=== PATIENT | male | born 1960 | race Caucasian/White ===

== ENCOUNTER 2019-05-15 19:28 | Inpatient (IN) ==
[2019-05-15] MEDS ORDERED: SODIUM CHLORIDE 0.9% 500 ML IV STA (20:07)
[2019-05-15 20:12] LABS: iSTAT Creatinine 1.7 mg/dl (0.6-1.3); iSTAT Hemoglobin 10.5 g/dl (14.0-18.0); iSTAT Ionized Calcium 1.18 mmol/l (1.12-1.32); iSTAT Potassium 4.2 mEq/L (3.3-5.0)
[2019-05-15 20:16] LABS: Basophils # (auto) 0.08 K/uL (0-0.2); Basophils % (auto) 1.2 %; Eosinophils % (auto) 4.6 %; Hematocrit (blood only) 31.5 % (42-52); Hemoglobin 10.8 g/dL (14.0-18.0); Immature Granulocytes # (auto) 0.01 K/uL (0.00-0.02); Immature Granulocytes % (auto) 0.2 %; Lymphocytes # (auto) 1.71 K/uL (1.2-3.4); Lymphocytes % (auto) 26.1 %; Mean Corpuscular Hemoglobin 33.4 pg (25-34); Mean Corpuscular Hgb Conc 34.3 g/dL (32-36); Mean Corpuscular Volume 97.5 fL (80-100); Monocytes # (auto) 0.55 K/uL (0.11-0.59); Monocytes % (auto) 8.4 %; Neutrophils % (auto) 59.5 %; Platelet Count 259 K/uL (130-400); RDW Standard Deviation 45.8 fL (36.4-46.3); Red Blood Count 3.23 M/uL (4.7-6.1); White Blood Count 6.55 K/uL (4.8-10.8)
[2019-05-15 20:21] LABS: Albumin Level 3.5 gm/dl (3.4-5.0); Blood Urea Nitrogen 26 mg/dl (7-18); Calcium 8.5 mg/dl (8.5-10.1); Carbon Dioxide 22 mmol/L (21-32); Chloride 111 mmol/L (98-107); Glucose 115 mg/dl (70-99); Potassium 3.8 mmol/L (3.5-5.1); Sodium 141 mmol/L (136-145)
[2019-05-15 20:23] LABS: Alanine Aminotransferase 16 U/L (12-78); Aspartate Aminotransferase 13 U/L (15-37); BUN Creatinine Ratio 17.5 (10-20); Creatinine Clr Calc Pharmacy 48.2 ml/min; Est GFR (African American) 59.2; Est GFR (Non-African American) 51.1
--- NOTE | 2019-05-15 20:29 | XRay Report ---
XR chest 1V portable HISTORY: syncope COMPARISON: None. FINDINGS: No pneumothorax. No pleural effusions. No focal lung consolidations to suggest pneumonia. N o evidence for pulmonary edema. Old, healed bilateral rib fractures. The heart is borderline enlarged . IMPRESSION: Borderline enlargement of the cardiac silhouette. Otherwise, no acute process within the chest. Electronically signed by: Khalif Scruggs M.D. 05/15/2019 8:28 PM
[2019-05-15] MEDS ORDERED: SODIUM CHLORIDE 0.9% 1000ML 1,000 ML IV ONE (20:32)
[2019-05-15 20:34] LABS: Albumin Globulin Ratio 1.1 (0.9-2); Alkaline Phosphatase 86 U/L (45-117); Bilirubin,Total 0.4 mg/dl (0.2-1); Globulin 3.2 gm/dl (2.5-4.0); Magnesium 2.3 mg/dl (1.8-2.4); Phosphorus 3.9 mg/dl (2.5-4.9); Total Protein 6.7 gm/dl (6.4-8.2); Troponin I < 0.015 ng/ml (0-0.045)
[2019-05-15] MEDS ORDERED: MULTI-VITAMIN INFUSION 10 ML, THIAMINE HCL 100 MG, FOLIC ACID 1 MG in SODIUM CHLORIDE 0... IV SCH (20:45)
[2019-05-15 22:23] LABS: T4 Free Thyroxine 0.77 ng/dl (0.8-1.6)
[2019-05-15] MEDS ORDERED: PANTOprazole 80 MG in DEXTROSE 5% 100 ML IV ONE (23:30)
--- NOTE | 2019-05-15 23:44 | Emergency Department Note ---
Entered by Mica Chin acting as a scribe for Italo Pretty MD History of Present Illness General Chief complaint: Syncope Stated complaint: SYNCOPE, RECTAL BLEEDING Time Seen by Provider: 05/15/19 20:09 Source: patient Limitations: no limitations History of Present Illness Onset (ago): hour(s) (a few) Location: head Pain Consistency: + other (episode) Current Pain Intensity: 0 Quality: + other (syncope) Associated symptoms: + denies other symptoms (incontinence) The patient is a 59 year old male who presents to the Emergency Room with complaints of a syncopal episode that occurred while he was at the [facility] this afternoon. He reports that he was sitting and drinking a beer while this occurred, noting that he had 4 beers today. The patient reports that someone caught him before he hit the ground. He notes that he was feeling normal throughout the day before the syncopal episode. The patient denies any bowel incontinence. 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 The patient denies any pain. He reports that he drinks alcohol every day but does not withdrawal if he doesn't drink alcohol. Denies CP, SOB, n/v. Home Medications Home Medications Medication Instructions Recorded Confirmed Type ibuprofen 200 mg PO Q6H PRN 05/15/19 05/15/19 History sulindac 200 mg PO BID 05/15/19 05/15/19 History Allergies Allergy/AdvReac Type Severity Reaction Status Date / Time codeine AdvReac Unknown Unverified 05/15/19 20:42 Past Med/Surg History Medical History Arthritis Social History Feels Safe at Home: Yes Smoking Status: Never smoker Review of Systems See HPI for pertinent positives & negatives. and A total of 10 systems reviewed and were otherwise negative Physical Exam Vital Signs Vital Signs - 24 hr 05/15/19 19:31 05/15/19 19:34 05/15/19 19:35 Temperature 36.7 C Temperature Source Oral Sepsis Recent Fever Within 48 Hours No Sepsis Action Taken by Nursing No Action Required Pulse Rate 73 72 74 Pulse Rate [Right Finger] Pulse Rate from SpO2 Sensor 72 72 Pulse Rhythm Regular Pulse Strength Normal Respiratory Rate 25 H 17 18 Respiratory Effort / Characteristics Non-Labored Respiratory Depth Normal Respiratory Pattern Regular Blood Pressure 126/78 126/78 Blood Pressure [Right Arm] Blood Pressure Mean 94 94 Blood Pressure Mean [Right Arm] Blood Pressure Position Lying Blood Pressure Position [Right Arm] Pulse Oximetry 99 99 99 Oxygen Delivery Method Room Air 05/15/19 19:40 05/15/19 19:49 05/15/19 19:50 Temperature Temperature Source Sepsis Recent Fever Within 48 Hours Sepsis Action Taken by Nursing Pulse Rate 89 83 87 Pulse Rate [Right Finger] Pulse Rate from SpO2 Sensor 87 Pulse Rhythm Pulse Strength Respiratory Rate 18 20 27 H Respiratory Effort / Characteristics Respiratory Depth Respiratory Pattern Blood Pressure 110/70 Blood Pressure [Right Arm] Blood Pressure Mean 83 Blood Pressure Mean [Right Arm] Blood Pressure Position Blood Pressure Position [Right Arm] Pulse Oximetry 99 Oxygen Delivery Method 05/15/19 20:00 05/15/19 20:15 05/15/19 20:28 Temperature Temperature Source Sepsis Recent Fever Within 48 Hours Sepsis Action Taken by Nursing Pulse Rate 88 84 80 Pulse Rate [Right Finger] Pulse Rate from SpO2 Sensor 88 84 80 Pulse Rhythm Pulse Strength Respiratory Rate 20 23 13 Respiratory Effort / Characteristics Respiratory Depth Respiratory Pattern Blood Pressure 96/71 L 122/73 Blood Pressure [Right Arm] Blood Pressure Mean 79 89 Blood Pressure Mean [Right Arm] Blood Pressure Position Blood Pressure Position [Right Arm] Pulse Oximetry 100 100 100 Oxygen Delivery Method 05/15/19 20:30 05/15/19 20:45 05/15/19 21:00 Temperature Temperature Source Sepsis Recent Fever Within 48 Hours Sepsis Action Taken by Nursing Pulse Rate 77 80 67 Pulse Rate [Right Finger] Pulse Rate from SpO2 Sensor 75 76 67 Pulse Rhythm Pulse Strength Respiratory Rate 19 21 18 Respiratory Effort / Characteristics Respiratory Depth Respiratory Pattern Blood Pressure 116/78 116/70 114/76 Blood Pressure [Right Arm] Blood Pressure Mean 90 85 88 Blood Pressure Mean [Right Arm] Blood Pressure Position Blood Pressure Position [Right Arm] Pulse Oximetry 100 100 100 Oxygen Delivery Method 05/15/19 21:15 05/15/19 21:30 05/15/19 21:40 Temperature Temperature Source Sepsis Recent Fever Within 48 Hours Sepsis Action Taken by Nursing Pulse Rate 70 71 Pulse Rate [Right Finger] 71 Pulse Rate from SpO2 Sensor 70 71 Pulse Rhythm Pulse Strength Respiratory Rate 22 18 15 Respiratory Effort / Characteristics Respiratory Depth Respiratory Pattern Blood Pressure 119/70 126/71 Blood Pressure [Right Arm] 126/71 Blood Pressure Mean 86 89 Blood Pressure Mean [Right Arm] 89 Blood Pressure Position Blood Pressure Position [Right Arm] Lying Pulse Oximetry 100 100 100 Oxygen Delivery Method 05/15/19 21:45 05/15/19 22:00 05/15/19 22:15 Temperature Temperature Source Sepsis Recent Fever Within 48 Hours Sepsis Action Taken by Nursing Pulse Rate 71 82 68 Pulse Rate [Right Finger] Pulse Rate from SpO2 Sensor 70 82 70 Pulse Rhythm Pulse Strength Respiratory Rate 13 15 16 Respiratory Effort / Characteristics Respiratory Depth Respiratory Pattern Blood Pressure 136/72 125/75 125/73 Blood Pressure [Right Arm] Blood Pressure Mean 93 91 90 Blood Pressure Mean [Right Arm] Blood Pressure Position Blood Pressure Position [Right Arm] Pulse Oximetry 100 100 100 Oxygen Delivery Method 05/15/19 22:30 05/15/19 22:45 05/15/19 23:00 Temperature Temperature Source Sepsis Recent Fever Within 48 Hours Sepsis Action Taken by Nursing Pulse Rate 68 69 69 Pulse Rate [Right Finger] Pulse Rate from SpO2 Sensor 70 70 70 Pulse Rhythm Pulse Strength Respiratory Rate 18 19 14 Respiratory Effort / Characteristics Respiratory Depth Respiratory Pattern Blood Pressure 120/74 119/77 119/69 Blood Pressure [Right Arm] Blood Pressure Mean 89 91 85 Blood Pressure Mean [Right Arm] Blood Pressure Position Blood Pressure Position [Right Arm] Pulse Oximetry 100 99 100 Oxygen Delivery Method 05/15/19 23:15 05/15/19 23:39 05/15/19 23:45 Temperature Temperature Source Sepsis Recent Fever Within 48 Hours Sepsis Action Taken by Nursing Pulse Rate 72 73 Pulse Rate [Right Finger] Pulse Rate from SpO2 Sensor 72 71 72 Pulse Rhythm Pulse Strength Respiratory Rate 18 15 Respiratory Effort / Characteristics Respiratory Depth Respiratory Pattern Blood Pressure 139/80 132/71 Blood Pressure [Right Arm] Blood Pressure Mean 99 91 Blood Pressure Mean [Right Arm] Blood Pressure Position Blood Pressure Position [Right Arm] Pulse Oximetry 100 100 98 Oxygen Delivery Method 05/16/19 00:00 05/16/19 00:15 05/16/19 00:30 Temperature Temperature Source Sepsis Recent Fever Within 48 Hours Sepsis Action Taken by Nursing Pulse Rate 74 75 87 Pulse Rate [Right Finger] Pulse Rate from SpO2 Sensor 73 74 88 Pulse Rhythm Pulse Strength Respiratory Rate 12 22 Respiratory Effort / Characteristics Respiratory Depth Respiratory Pattern Blood Pressure 110/69 128/68 158/90 H Blood Pressure [Right Arm] Blood Pressure Mean 82 88 112 Blood Pressure Mean [Right Arm] Blood Pressure Position Blood Pressure Position [Right Arm] Pulse Oximetry 100 99 98 Oxygen Delivery Method 05/16/19 00:45 05/16/19 01:00 05/16/19 01:15 Temperature Temperature Source Sepsis Recent Fever Within 48 Hours Sepsis Action Taken by Nursing Pulse Rate 81 76 82 Pulse Rate [Right Finger] Pulse Rate from SpO2 Sensor 82 78 81 Pulse Rhythm Pulse Strength Respiratory Rate 22 19 25 H Respiratory Effort / Characteristics Respiratory Depth Respiratory Pattern Blood Pressure 143/81 H 145/81 H 146/78 H Blood Pressure [Right Arm] Blood Pressure Mean 101 102 100 Blood Pressure Mean [Right Arm] Blood Pressure Position Blood Pressure Position [Right Arm] Pulse Oximetry 100 100 99 Oxygen Delivery Method 05/16/19 01:30 Temperature Temperature Source Sepsis Recent Fever Within 48 Hours Sepsis Action Taken by Nursing Pulse Rate 91 H Pulse Rate [Right Finger] Pulse Rate from SpO2 Sensor 90 Pulse Rhythm Pulse Strength Respiratory Rate 19 Respiratory Effort / Characteristics Respiratory Depth Respiratory Pattern Blood Pressure 127/80 Blood Pressure [Right Arm] Blood Pressure Mean 95 Blood Pressure Mean [Right Arm] Blood Pressure Position Blood Pressure Position [Right Arm] Pulse Oximetry 98 Oxygen Delivery Method GENERAL: Awake, alert, fatigued-appearing, in no distress HENT: Normocephalic, atraumatic. Oropharynx with dry mucous membranes and otherwise unremarkable. EYES: Normal conjunctiva. Sclera non-icteric. EOMI. No nystamgus. PEARRL. NECK: Supple. No nuchal rigidity. FROM. No JVD. RESPIRATORY: CTAB. CARDIAC: Regular rate, normal rhythm. Extremities warm and well perfused. Pulses equal. ABDOMEN: Soft, non-distended. No tenderness to palpation. No rebound or guarding. No masses. RECTAL: Red blood with dark stool, guaiac positive. MUSCULOSKELETAL: Chest examination reveals no tenderness. The back is symmetrical on inspection without obvious abnormality. There is no CVA tenderness to palpation. No joint edema. LOWER EXTREMITIES: Calves are equal size bilaterally and non-tender. No edema. No discoloration. NEURO: Normal sensorium. No sensory or motor deficits noted. 5/5 strength and SILT x4 extremities. Intact finger to nose. SKIN: No rash or jaundice noted. Course 2028: The patient was evaluated in room B03. A complete history and physical exam was performed. Administered Medications Pantoprazole Sodium 40 mg/ (Dextrose) 100 mls @ 20 mls/hr IV Q5H JANAK Stop: 05/16/19 04:44 Last Admin: 05/16/19 01:54 Dose: 20 mls/hr Documented by: [id number] Discontinued Medications Sodium Chloride (Nss) 500 mls @ 999 mls/hr IV .Q31M STA Stop: 05/15/19 20:37 Last Infusion: 05/15/19 20:36 Dose: 0 mls/hr Documented by: [id number] Admin: 05/15/19 20:10 Dose: 999 mls/hr Documented by: [id number] Multivitamins 10 ml/ Thiamine HCl 100 mg/ Folic Acid 1 mg/Sodium Chloride 1,011.2 mls @ 1,011.2 mls/hr IV .Q1H JANAK Stop: 05/15/19 21:44 Last Infusion: 05/15/19 22:11 Dose: 0 mls/hr Documented by: [id number] Admin: 05/15/19 21:04 Dose: 1,011.2 mls/hr Documented by: [id number] Sodium Chloride (Nss 1000ml) 1,000 mls @ 999 mls/hr IV .Q1H1M ONE Stop: 05/15/19 21:32 Last Infusion: 05/15/19 22:11 Dose: 0 mls/hr Documented by: [id number] Admin: 05/15/19 21:04 Dose: 999 mls/hr Documented by: [id number] Pantoprazole Sodium 80 mg/ (Dextrose) 120 mls @ 480 mls/hr IV ONE ONE Stop: 05/15/19 23:44 Last Infusion: 05/16/19 00:11 Dose: 0 mls/hr Documented by: [id number] Admin: 05/15/19 23:55 Dose: 480 mls/hr Documented by: [id number] Medical Decision Making Differential Diagnosis Etiologies such as vasovagal event, infection, anemia, hypoglycemia, hypovolemia, electrolyte abnormalities, dysrhythmias, cardiac ischemia, cardiac tamponade, valvular heart disease, structural heart disease, seizure, vascular stenosis/dissection, pulmonary embolism, intracerebral event, toxicological process, neurologic event, as well as others were entertained. Medical Records Attestation: I reviewed the patient's medical records. Home Medications Current Medication List: was personally reviewed by me Laboratory Data Attestation: I reviewed the patient's lab results. Result diagrams: 05/15/19 Unknown 05/15/19 Unknown Lab Results 05/15/19 05/15/19 05/15/19 Range/Units 19:36 19:57 20:06 WBC (4.8-10.8) K/uL RBC (4.7-6.1) M/uL Hgb (14.0-18.0) g/dL POC Hgb 10.5 L (14.0-18.0) g/dl Hct (42-52) % POC Hct 31 L (42-52) % MCV (80-100) fL MCH (25-34) pg MCHC (32-36) g/dL RDW Std Deviation (36.4-46.3) fL RDW Coeff of Karan (11.5-14.5) % Plt Count (130-400) K/uL MPV (7.4-10.4) fL Immature Gran % (Auto) % Neut % (Auto) % Lymph % (Auto) % Sanborn % (Auto) % Eos % (Auto) % Baso % (Auto) % Immature Gran # (Auto) (0.00-0.02) K/uL Neut # (Auto) (1.4-6.5) K/uL Lymph # (Auto) (1.2-3.4) K/uL Sanborn # (Auto) (0.11-0.59) K/uL Eos # (Auto) (0-0.5) K/uL Baso # (Auto) (0-0.2) K/uL PT 10.1 (9.0-12.0) Seconds INR 1.0 (0.9-1.1) POC Sodium 139 (135-144) mEq/L Sodium (136-145) mmol/L POC Potassium 4.2 (3.3-5.0) mEq/L Potassium (3.5-5.1) mmol/L POC Chloride 107 (101-112) mEq/L Chloride (98-107) mmol/L Carbon Dioxide (21-32) mmol/L POC Total CO2 20 L (24-31) mEq/l Anion Gap (3-11) POC Anion Gap 18.0 (16-25) mmol/L POC BUN 25 H (7-18) mg/dl BUN (7-18) mg/dl Creatinine (0.6-1.4) mg/dl POC Creatinine 1.7 H (0.6-1.3) mg/dl Est Cr Clr Drug Dosing ml/min Est GFR ( Amer) Est GFR (Non-Af Amer) BUN/Creatinine Ratio (10-20) Glucose (70-99) mg/dl POC Glucose (other) 123 H (70-99) mg/dl Calcium (8.5-10.1) mg/dl POC Ioniz Calcium Marilou 1.18 (1.12-1.32) mmol/l Phosphorus (2.5-4.9) mg/dl Magnesium (1.8-2.4) mg/dl Total Bilirubin (0.2-1) mg/dl AST (15-37) U/L ALT (12-78) U/L Alkaline Phosphatase (45-117) U/L Troponin I (0-0.045) ng/ml Total Protein (6.4-8.2) gm/dl Albumin (3.4-5.0) gm/dl Globulin (2.5-4.0) gm/dl Albumin/Globulin Ratio (0.9-2) TSH (0.300-4.500) uIu/ml Free T4 (0.8-1.6) ng/dl Ethyl Alcohol mg/dL (0-3) mg/dl Blood Type O Positive Antibody Screen NEGATIVE 05/15/19 05/15/19 05/15/19 Range/Units 20:42 Unknown Unknown WBC 6.55 (4.8-10.8) K/uL RBC 3.23 L (4.7-6.1) M/uL Hgb 10.8 L (14.0-18.0) g/dL POC Hgb (14.0-18.0) g/dl Hct 31.5 L (42-52) % POC Hct (42-52) % MCV 97.5 (80-100) fL MCH 33.4 (25-34) pg MCHC 34.3 (32-36) g/dL RDW Std Deviation 45.8 (36.4-46.3) fL RDW Coeff of Karan 13.0 (11.5-14.5) % Plt Count 259 (130-400) K/uL MPV 9.0 (7.4-10.4) fL Immature Gran % (Auto) 0.2 % Neut % (Auto) 59.5 % Lymph % (Auto) 26.1 % Sanborn % (Auto) 8.4 % Eos % (Auto) 4.6 % Baso % (Auto) 1.2 % Immature Gran # (Auto) 0.01 (0.00-0.02) K/uL Neut # (Auto) 3.90 (1.4-6.5) K/uL Lymph # (Auto) 1.71 (1.2-3.4) K/uL Sanborn # (Auto) 0.55 (0.11-0.59) K/uL Eos # (Auto) 0.30 (0-0.5) K/uL Baso # (Auto) 0.08 (0-0.2) K/uL PT (9.0-12.0) Seconds INR (0.9-1.1) POC Sodium (135-144) mEq/L Sodium 141 (136-145) mmol/L POC Potassium (3.3-5.0) mEq/L Potassium 3.8 (3.5-5.1) mmol/L POC Chloride (101-112) mEq/L Chloride 111 H (98-107) mmol/L Carbon Dioxide 22 (21-32) mmol/L POC Total CO2 (24-31) mEq/l Anion Gap 8.0 (3-11) POC Anion Gap (16-25) mmol/L POC BUN (7-18) mg/dl BUN 26 H (7-18) mg/dl Creatinine 1.47 H (0.6-1.4) mg/dl POC Creatinine (0.6-1.3) mg/dl Est Cr Clr Drug Dosing 48.2 ml/min Est GFR ( Amer) 59.2 Est GFR (Non-Af Amer) 51.1 BUN/Creatinine Ratio 17.5 (10-20) Glucose 115 H (70-99) mg/dl POC Glucose (other) (70-99) mg/dl Calcium 8.5 (8.5-10.1) mg/dl POC Ioniz Calcium Marilou (1.12-1.32) mmol/l Phosphorus 3.9 (2.5-4.9) mg/dl Magnesium 2.3 (1.8-2.4) mg/dl Total Bilirubin 0.4 (0.2-1) mg/dl AST 13 L (15-37) U/L ALT 16 (12-78) U/L Alkaline Phosphatase 86 (45-117) U/L Troponin I < 0.015 (0-0.045) ng/ml Total Protein 6.7 (6.4-8.2) gm/dl Albumin 3.5 (3.4-5.0) gm/dl Globulin 3.2 (2.5-4.0) gm/dl Albumin/Globulin Ratio 1.1 (0.9-2) TSH 13.200 H (0.300-4.500) uIu/ml Free T4 0.77 L (0.8-1.6) ng/dl Ethyl Alcohol mg/dL 81.0 H (0-3) mg/dl Blood Type Antibody Screen Imaging Data Radiologist's Impression: Radiology results as stated below per my review and the radiologist's interpretation: XR chest 1V portable HISTORY: syncope COMPARISON: None. FINDINGS: No pneumothorax. No pleural effusions. No focal lung consolidations to suggest pneumonia. No evidence for pulmonary edema. Old, healed bilateral rib fractures. The heart is borderline enlarged. IMPRESSION: Borderline enlargement of the cardiac silhouette. Otherwise, no acute process within the chest. Electronically signed by: Khalif Scruggs M.D. 05/15/2019 8:28 PM [facility]: CT ABDOMEN & PELVIS Without Contrast: Fluid levels throughout the small and large bowel without obstruction or wall thickening, normal appendix Radiologist: Lars Greenberg MD Study ready at 23:43 and initial results transmitted at 23:52 ECG Data Attestation: I personally reviewed and interpreted this ECG as follows: Indication: syncope Rate (beats per minute): 75 Rhythm: normal sinus Findings: + other (left axis deviation, no overt acute ischemia) Blood Pressure Blood Pressure Findings: Normal blood pressure Blood Pressure Disposition: did not require urgent referral MDM Narrative The patient is a pleasant 59-year-old gentleman who presents emergency dep artment with a syncopal episode when he was [place] the [place] and had a bloody bowel movement prior to syncopizing with subsequent second bloody bowel movement. On arrival the patient is fatigued appearing but in NAD, AF with BP 90s/70s and vital signs otherwise stable. Patient appears clinically dry. He is neurologically intact including finger to nose. Rectal exam demonstrates red blood with dark stool that is guaiac positive. Abdomen benign. WBC wnl. H/H 10.8/31.5 similar to past value in 2013. Platelets wnl. Cr 1.47 similar to value in 2013 as well. Electrolytes and LFTs unremarkable. Troponin negative. Etoh 81. Patient with improved BP after IVF/banana bag. Of note, patient arrived to ED during period of high volume and acuity. 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 When I initially reviewed the patients triage note, the entry had yet to be entered. When I re-evaluated the patient following the return of his blood work the patients asked me where the blood came from and that is when I became aware and performed the rectal exam. Protonix gtt given patient's regular etoh use, though less likely given red blood on exam. CT abd pelvis per preliminary [facility] report shows fluid levels throughout small and large bowel without obstruction or wall thickening. Patient continued to remain hemodynamically stable. Case d/w Dr. Cortez, [facility] hospitalist, who will evaluate the patient for admission. Of note, patient initially declined admission because he has "things do do". He was then agreeable to stay overnight for continued monitoring and trending of H/H and says he would be agreeable to staying if his blood counts drop or his bloody stool continues. Dr. Cortez updated. Impression & Plan Acute GI bleeding, Syncope Discharge Plan Visit Data Chief Complaint: Syncope Stated Complaint: SYNCOPE, RECTAL BLEEDING ED Provider: Italo Pretty Discharge Problem: Acute GI bleeding, Syncope Forms Stand Alone Forms: [facility] [place] gDecide Prescriptions Prescriptions: No Action ibuprofen 200 mg Tablet 200 mg PO Q6H PRN (Reason: Pain) RF: 0 sulindac 200 mg tablet 200 mg PO BID RF: 0 The scribe's documentation has been prepared under my direction and personally reviewed by me in its entirety. I confirm that the note above accurately reflects all work, treatment, procedures, and medical decision making performed by me.
[2019-05-16 00:31] LABS: Prothrombin Time 10.1 Seconds (9.0-12.0)
[2019-05-16] MEDS ORDERED: GABAPENTIN 800 MG TAB PO STA (01:51)
--- NOTE | 2019-05-16 01:52 | History & Physical Report ---
Date of Service May 16, 2019 Assessment & Plan (1) Acute GI bleeding: Possible orthostasis/hemodynamic instability given near syncopal episode at the bar Potential etiologies: Gastritis, PUD, tumor Patient predisposed to bleeding daily NSAID intake for rheumatoid arthritis and "regular" alcohol intake although patient denies abuse CRI, creatinine at baseline Hyperglycemia rule out DM Hypothyroidism, new diagnosis Medical telemetry Continue IV PPI Patient counseled about adverse effects of alcohol and NSAIDs on gastric mucosa. Anemia work-up, trend H&H, transfuse PRBC if hemoglobin less than 7 and/or for symptomatic anemia DT precautions Check hemoglobin A1c Initiate levothyroxine, recheck TSH next month DVT prophylaxis. SCDs RE GI bleed Full code History of Present Illness Chief Complaint: Dizziness, dark stools Primary Care Provider: Sriram Danielson DO History obtained from patient, family, and records. Medical history significant for rheumatoid arthritis, CRI (baseline creatinine 1.4). Yesterday patient noted loose dark stools admixed with red blood without abdominal pain, nausea, emesis symptoms. No previous episode in the past as per patient. No unusual weight loss. Usual daily NSAID intake. Patient was at a bar at [place] yesterday afternoon when he felt lightheaded, felt like he was going to pass out. Patient caught by a friend before hitting the ground. At the ER, IV PPI started for UGI B. Medical History as above No prior endoscopies. 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 Beliefs That Will Affect Care: None Current Living Situation: Alone Other Information That Helps Us Care for You: No Feels Safe at Home: Yes Safety Concerns: Feels Safe At This Time Smoking Status: Never smoker Tobacco Type: smokeless tobacco ; Do You Dip or Ch ew Tobacco: Yes ; Smoking End Date: 2 cans/week ; Tobacco Cessation Education Requested by Patient: No Hx Alcohol Use: Yes Alcohol type: beer Hx Substance Use: No Review of Systems Review of Systems: As per HPI, all 10 systems reviewed, all other ROS negative Physical Exam Physical Exam: GENERAL: Slightly anxious, no respiratory distress SKIN: Pallor, warm HEENT: Thinning hair, pale palpebral conjunctivae, no ptosis, dry buccal mucosa NECK : Supple, short neck, no tenderness CHEST : CTA, no tenderness HEART : RRR, no obvious murmurs ABDOMEN: Some distention, nontender EXTREMITIES : No LE swelling/tenderness, no other conspicuous deformities noted except for chronic phalangeal nodes on the hands NEUROLOGIC : Coherent, no facial asymmetry, tremulous, no other gross focality Results & Data Vital Signs (Past 12 Hours) Vital Signs Temp Pulse Pulse Resp BP BP Pulse Ox 05/16/19 01:30 91 H 19 127/80 98 05/16/19 01:15 82 25 H 146/78 H 99 05/16/19 01:00 76 19 145/81 H 100 05/16/19 00:45 81 22 143/81 H 100 05/16/19 00:30 87 22 158/90 H 98 05/16/19 00:15 75 12 128/68 99 05/16/19 00:00 74 110/69 100 05/15/19 23:45 73 15 132/71 98 05/15/19 23:39 100 05/15/19 23:15 72 18 139/80 100 05/15/19 23:00 69 14 119/69 100 05/15/19 22:45 69 19 119/77 99 05/15/19 22:30 68 18 120/74 100 05/15/19 22:15 68 16 125/73 100 05/15/19 22:00 82 15 125/75 100 05/15/19 21:45 71 13 136/72 100 05/15/19 21:40 71 15 126/71 100 05/15/19 21:30 71 18 126/71 100 05/15/19 21:15 70 22 119/70 100 05/15/19 21:00 67 18 114/76 100 05/15/19 20:45 80 21 116/70 100 05/15/19 20:30 77 19 116/78 100 05/15/19 20:28 80 13 122/73 100 05/15/19 20:15 84 23 96/71 L 100 05/15/19 20:00 88 20 100 05/15/19 19:50 87 27 H 99 05/15/19 19:49 83 20 110/70 05/15/19 19:40 89 18 05/15/19 19:35 36.7 C 74 18 126/78 99 05/15/19 19:34 72 17 99 05/15/19 19:31 73 25 H 126/78 99 Laboratory Results Laboratory Results WBC 6.55 K/uL (4.8-10.8) 05/15/19 Unknown RBC 3.23 M/uL (4.7-6.1) L 05/15/19 Unknown Hgb 10.8 g/dL (14.0-18.0) L 05/15/19 Unknown POC Hgb 10.5 g/dl (14.0-18.0) L 05/15/19 19:57 Hct 31.5 % (42-52) L 05/15/19 Unknown POC Hct 31 % (42-52) L 05/15/19 19:57 MCV 97.5 fL (80-100) 05/15/19 Unknown MCH 33.4 pg (25-34) 05/15/19 Unknown MCHC 34.3 g/dL (32-36) 05/15/19 Unknown RDW Std Deviation 45.8 fL (36.4-46.3) 05/15/19 Unknown RDW Coeff of Karan 13.0 % (11.5-14.5) 05/15/19 Unknown Plt Count 259 K/uL (130-400) 05/15/19 Unknown MPV 9.0 fL (7.4-10.4) 05/15/19 Unknown Immature Gran % (Auto) 0.2 % 05/15/19 Unknown Neut % (Auto) 59.5 % 05/15/19 Unknown Lymph % (Auto) 26.1 % 05/15/19 Unknown [place] % (Auto) 8.4 % 05/15/19 Unknown Eos % (Auto) 4.6 % 05/15/19 Unknown Baso % (Auto) 1.2 % 05/15/19 Unknown Immature Gran # (Auto) 0.01 K/uL (0.00-0.02) 05/15/19 Unknown Neut # (Auto) 3.90 K/uL (1.4-6.5) 05/15/19 Unknown Lymph # (Auto) 1.71 K/uL (1.2-3.4) 05/15/19 Unknown [place] # (Auto) 0.55 K/uL (0.11-0.59) 05/15/19 Unknown Eos # (Auto) 0.30 K/uL (0-0.5) 05/15/19 Unknown Baso # (Auto) 0.08 K/uL (0-0.2) 05/15/19 Unknown PT 10.1 Seconds (9.0-12.0) 05/15/19 19:36 INR 1.0 (0.9-1.1) 05/15/19 19:36 POC Sodium 139 mEq/L (135-144) 05/15/19 19:57 Sodium 141 mmol/L (136-145) 05/15/19 Unknown POC Potassium 4.2 mEq/L (3.3-5.0) 05/15/19 19:57 Potassium 3.8 mmol/L (3.5-5.1) 05/15/19 Unknown POC Chloride 107 mEq/L (101-112) 05/15/19 19:57 Chloride 111 mmol/L (98-107) H 05/15/19 Unknown Carbon Dioxide 22 mmol/L (21-32) 05/15/19 Unknown POC Total CO2 20 mEq/l (24-31) L 05/15/19 19:57 Anion Gap 8.0 (3-11) 05/15/19 Unknown POC Anion Gap 18.0 mmol/L (16-25) 05/15/19 19:57 POC BUN 25 mg/dl (7-18) H 05/15/19 19:57 BUN 26 mg/dl (7-18) H 05/15/19 Unknown Creatinine 1.47 mg/dl (0.6-1.4) H 05/15/19 Unknown POC Creatinine 1.7 mg/dl (0.6-1.3) H 05/15/19 19:57 Est Cr Clr Drug Dosing 48.2 ml/min 05/15/19 Unknown Est GFR ( Amer) 59.2 05/15/19 Unknown Est GFR (Non-Af Amer) 51.1 05/15/19 Unknown BUN/Creatinine Ratio 17.5 (10-20) 05/15/19 Unknown Glucose 115 mg/dl (70-99) H 05/15/19 Unknown POC Glucose (other) 123 mg/dl (70-99) H 05/15/19 19:57 Calcium 8.5 mg/dl (8.5-10.1) 05/15/19 Unknown POC Ioniz Calcium [place] 1.18 mmol/l (1.12-1.32) 05/15/19 19:57 Phosphorus 3.9 mg/dl (2.5-4.9) 05/15/19 Unknown Magnesium 2.3 mg/dl (1.8-2.4) 05/15/19 Unknown Total Bilirubin 0.4 mg/dl (0.2-1) 05/15/19 Unknown AST 13 U/L (15-37) L 05/15/19 Unknown ALT 16 U/L (12-78) 05/15/19 Unknown Alkaline Phosphatase 86 U/L (45-117) 05/15/19 Unknown Troponin I < 0.015 ng/ml (0-0.045) 05/15/19 Unknown Total Protein 6.7 gm/dl (6.4-8.2) 05/15/19 Unknown Albumin 3.5 gm/dl (3.4-5.0) 05/15/19 Unknown Globulin 3.2 gm/dl (2.5-4.0) 05/15/19 Unknown Albumin/Globulin Ratio 1.1 (0.9-2) 05/15/19 Unknown TSH 13.200 uIu/ml (0.300-4.500) H 05/15/19 Unknown Free T4 0.77 ng/dl (0.8-1.6) L 05/15/19 Unknown Ethyl Alcohol mg/dL 81.0 mg/dl (0-3) H 05/15/19 20:42 Blood Type O Positive 05/15/19 20:06 Antibody Screen NEGATIVE 05/15/19 20:06 Diagnostic Findings Chest x-ray showed Borderline enlargement of the cardiac silhouette. Otherwise, no acute process within the chest. EKG as per my interpretation :Rate 75, normal axis, LAD, LAFB, T wave flattening inferior leads CT abdomen pelvis initial read: Fluid levels throughout small/large bowel without obstruction or wall thickening. Normal appendix
[2019-05-16] MEDS: PANTOprazole 40 MG in DEXTROSE 5% 100 ML IV SCH ×5 (01:54→20:33)
[2019-05-16] MEDS ORDERED: GABAPENTIN 600 MG TAB PO STA (02:07)
[2019-05-16] MEDS ORDERED: PROMETHAZINE HCL 12.5 MG in SODIUM CHLORIDE 0.9% 50 ML IV PRN (04:09)
[2019-05-16] MEDS ORDERED: GABAPENTIN 1200MG ALCOHOL WITHDRAWAL LOAD PO STA (04:09)
[2019-05-16] MEDS ORDERED: LORazepam 3 MG/6 ML VIAL IV PRN (04:09)
[2019-05-16] MEDS ORDERED: LORazepam 1 MG/2 ML VIAL IV PRN (04:09)
[2019-05-16] MEDS ORDERED: LORazepam 2 MG/4 ML VIAL IV PRN (04:09)
[2019-05-16] MEDS ORDERED: ATIVAN IV ALCOHOL WITHDRAWL IV SCH (04:09)
[2019-05-16] MEDS: LACTATED RINGER'S 1,000 ML IV SCH (04:29)
[2019-05-16 05:11] LABS: BUN Creatinine Ratio 17.6 (10-20); Calcium 7.1 mg/dl (8.5-10.1); Creatinine Clr Calc Pharmacy 61.6 ml/min; Est GFR (African American) 79.7; Est GFR (Non-African American) 68.8; Potassium 4.4 mmol/L (3.5-5.1)
[2019-05-16 05:18] LABS: Hematocrit (blood only) 20.9 % (42-52); Hemoglobin 7.1 g/dL (14.0-18.0); Mean Corpuscular Volume 97.2 fL (80-100); Mean Platelet Volume 8.5 fL (7.4-10.4); Platelet Count 182 K/uL (130-400); RDW Coefficient of Variation 12.9 % (11.5-14.5); RDW Standard Deviation 45.2 fL (36.4-46.3); Red Blood Count 2.15 M/uL (4.7-6.1); White Blood Count 6.36 K/uL (4.8-10.8)
[2019-05-16 05:19] LABS: Basophils # (auto) 0.03 K/uL (0-0.2); Basophils % (auto) 0.5 %; Eosinophils # (auto) 0.08 K/uL (0-0.5); Eosinophils % (auto) 1.3 %; Immature Granulocytes # (auto) 0.01 K/uL (0.00-0.02); Immature Granulocytes % (auto) 0.2 %; Lymphocytes # (auto) 0.99 K/uL (1.2-3.4); Lymphocytes % (auto) 15.6 %; Monocytes # (auto) 0.41 K/uL (0.11-0.59); Monocytes % (auto) 6.4 %; Neutrophils # (auto) 4.84 K/uL (1.4-6.5); RBC Morphology Unremarkable; Reticulocyte % 1.4 % (0.5-2.0); Reticulocytes # 0.03 10^6/uL (0.02-0.10)
[2019-05-16] MEDS ORDERED: SODIUM CHLORIDE 0.9% 250 ML IV PRN ×2 (05:43→16:49)
--- NOTE | 2019-05-16 05:47 | CT Scan Report ---
CT abd pelvis wo con CLINICAL HISTORY: 59 years-old Male presenting with red blood per rectum, rectal bleeding. TECHNIQUE: Multidetector CT of the abdomen and pelvis was performed without the use of intravenous co ntrast. IV contrast: None. One or more dose lowering techniques were used consistent with the princip les of ALARA (as low as reasonably achievable), including automatic exposure control, mA or kV adjust ment to individual patient size, and/or use of iterative reconstruction. COMPARISON: None. CT DOSE (mGy.cm): The estimated cumulative dose is 291.91 mGy.cm. FINDINGS: Product Analyst topogram: Unremarkable. Lung bases: Normal heart size. No pericardial or pleural effusion. Minimal dependent changes likely a telectasis. Liver: Normal morphology. Normal density. Biliary: No gross biliary ductal dilatation allowing for noncontrast technique. Normal gallbladder. Pancreas: Mild parenchymal atrophy. Spleen: Normal noncontrast appearance. Adrenal glands: Normal noncontrast appearance. Kidneys and ureters: Normal noncontrast appearance. No nephrolithiasis. No hydronephrosis. Normal ure ters. Bladder: Circumferential bladder wall thickening. Pelvic organs: Normal noncontrast appearance. Bowel: Hyperdense fluid in the rectum, which is mildly distended. There is also mild hyperdense fluid in the mid sigmoid colon. Mild stool burden in the remainder of the colon. Few diverticula in the pr oximal sigmoid and ascending (right-sided) colon. The appendix is normal. No colonic wall thickening or pericolonic inflammatory change. No bowel obstruction. Nonspecific fluid in the distal ileum. Peritoneal cavity: No free fluid or intraperitoneal gas. Lymph nodes: No gross lymphadenopathy allowing for noncontrast technique. Vasculature: Atherosclerosis of the normal caliber abdominal aorta. Abdominal wall: Gynecomastia. Musculoskeletal: Degenerative changes of the spine. Posttraumatic deformity of the right pubic rami. IMPRESSION: 1. Hyperdense fluid in the rectum and sigmoid colon suggests the presence of intraluminal hemorrhage . Sensitivity for gastrointestinal hemorrhage is decreased by the absence of intravenous contrast. Al lowing for this, potential sites of hemorrhage include the presence of limited diverticulosis includi ng right-sided diverticulosis. No evidence of diverticulitis. 2. Circumferential bladder wall thickening could indicate chronic bladder outlet obstruction or cyst itis. Correlate with urinalysis. Electronically signed by: Pepe Encarnacion M.D. 05/16/2019 5:45 AM
[2019-05-16] MEDS: LEVOTHYROXINE SODIUM 25 MCG TABLET PO SCH (06:33)
[2019-05-16 08:06] LABS: Estimated Average Glucose 105 mg/dl; Hemoglobin A1C 5.3 % (4.5-5.6)
[2019-05-16] MEDS: GABAPENTIN 600 MG TAB PO SCH ×4 (08:15→21:05)
[2019-05-16] MEDS: MULTIVITAMIN TAB PO SCH (08:16)
[2019-05-16] MEDS: FOLIC ACID 1 MG TAB PO SCH (08:16)
[2019-05-16] MEDS: THIAMINE HCL 100 MG TAB PO SCH (08:17)
[2019-05-16 08:22] LABS: Folate (Folic Acid) > 24.00 ng/ml (>5.38); Vitamin B12 272 pg/ml (211-911)
--- NOTE | 2019-05-16 09:12 | History & Physical Report ---
Date of Service May 16, 2019 History of Present Illness Chief Complaint: Anemia Primary Care Provider: Sriram Danielson, DO 59 yo male for which GI is being consulted by Nas Shields for anemia and ? GI bleed. 59 yo male with significant etoh use history, admitted through the er after feeling like he was going to pass out at the bar. He was at the bar, felt like he was going to pass out, caught by a friend- never fell. Came to the ER, reportedly stating he was having some loose stools,? black. Does take NSAID's regularly. No hematemesis, no belly pain. In ER- hemodynamically stable, given IV PPI, IV LR after CT A/P showed liver to be non-cirrhotic,bladder thickening and rectal thickening with ?blood in rectum and sigmoid, diverticulosis and cxray showing borderline cardiomegaly. He is feeling fine this morning No hematemesis or further loose stools. No recent travel, new foods. 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 Beliefs That Will Affect Care: None Current Living Situation: Alone Other Information That Helps Us Care for You: No Feels Safe at Home: Yes Safety Concerns: Feels Safe At This Time Smoking Status: Never smoker Tobacco Type: smokeless tobacco ; Do You Dip or Chew Tobacco: Yes ; Smoking End Date: 2 cans/week ; Tobacco Cessation Education Requested by Patient: No Hx Alcohol Use: Yes Alcohol type: beer Hx Substance Use: No Review of Systems All systems reviewed & are unremarkable except as noted in HPI & below Physical Exam Physical Exam: Well nourished male in nad Eyes: PERRL, conjunctivae normal, anicteric sclerae Cardiovascular: RRR, no murmur, no edema Chest (Breasts): normal inspection/palpation of breasts Gastrointestinal (Abdomen): normal bowel sounds, soft, nontender, no hepatosplenomegaly Rectal exam without evidence of blood Skin: no rashes, warm and dry Results & Data Vital Signs (Past 12 Hours) Vital Signs Temp Pulse Pulse Resp BP BP Pulse Ox 05/16/19 08:55 36.7 C 72 18 137/55 L 98 05/16/19 08:25 36.7 C 68 18 114/65 98 05/16/19 08:10 37.0 C 76 18 106/63 96 05/16/19 07:53 37.1 C 149 H 18 114/53 L 05/16/19 07:23 77 05/16/19 07:20 36.3 C L 65 20 121/66 99 05/16/19 03:27 100 H 05/16/19 03:15 36.8 C 76 18 152/73 H 99 05/16/19 03:06 81 18 110/70 99 05/16/19 02:45 81 26 H 128/66 99 05/16/19 02:30 78 19 121/65 99 05/16/19 02:15 103 H 23 05/16/19 02:00 93 H 29 H 122/74 99 05/16/19 01:45 92 H 26 H 140/82 98 05/16/19 01:30 91 H 19 127/80 98 05/16/19 01:15 82 25 H 146/78 H 99 05/16/19 01:00 76 19 145/81 H 100 05/16/19 00:45 81 22 143/81 H 100 05/16/19 00:30 87 22 158/90 H 98 05/16/19 00:15 75 12 128/68 99 05/16/19 00:00 74 110/69 100 05/15/19 23:45 73 15 132/71 98 05/15/19 23:39 100 05/15/19 23:15 72 18 139/80 100 05/15/19 23:00 69 14 119/69 100 05/15/19 22:45 69 19 119/77 99 05/15/19 22:30 68 18 120/74 100 05/15/19 22:15 68 16 125/73 100 05/15/19 22:00 82 15 125/75 100 05/15/19 21:45 71 13 136/72 100 05/15/19 21:40 71 15 126/71 100 05/15/19 21:30 71 18 126/71 100 05/15/19 21:15 70 22 119/70 100 Labs reviewed: hgb 10.8/hct 31.5/normal platelets on admission today hgb 7.1/hct 20.9/plt 182 INR 1.0 Normal electrolytes Slight bun rise of 26 on admission and now [address] A/P reviewed Supervising Physician Co-Signing Physician Notes 59 yo male with etoh use admitted thru the er overnite for presyncope and reports of loose dark stools. Labs signficant for anemia with drop in hgb and sligh bun rise that is improving. On nsaid's. Diff- pudz, alcoholic gastritis would recommend IV PPI for now, NPO status with sips of liquid, observe how he does, transfuse as needed. Defer egd at this time, will reassess clinical condition and if needed will be done over the weekend, otherwise likely as an outpatient or early next week. No prior scopes by [facility] in the [facility] on review.
[2019-05-16 13:36] LABS: Hematocrit (blood only) 22.2 % (42-52); Hemoglobin 7.7 g/dL (14.0-18.0)
--- NOTE | 2019-05-16 16:26 | Hospitalist Progress Note ---
Date of Service May 16, 2019 Assessment & Plan (1) Acute GI bleeding: Present on admission with near syncopal episode Possible related to peptic ulcer dx, gastritis from alcohol/NSAIDs CT abd without contrast showed Hyperdense fluid in the rectum and sigmoid colon suggests the presence of intraluminal hemorrhage Rectal exam done with negative Hemoccult as per GI Hemoglobin dropped to 7.1 Received 1 unit PRBC and repeat Hgb 7.7 Will consider to give an additional unit PRBC if h/h drop GI on board No EGD for now, but if clinical worsening or h/h continue to drop, will be done over the weekend If h/h stable, will plan for scope outpatient Continue IV PPI NPO for now with sip of water Monitor H/H Near Syncope No focal neuro deficit Fall precaution Stable Anemia Mostly related to GI bleed Hemoglobin on admission 10.8, then dropped to 7.1 Received 1 unit PRBC Repeat Hgb 7.5 Will transfuse an additional 1 unit PPRBC Monitor H/H JUDIE Creatinine on admission 1.47 Received IVF C Creatinine improved to 1.1 Monitor BMP Alcohol Abuse Denies any hx of alcohol withdrawn or DT Continue gabapentin/Ativan alcohol withdrawn protocol Monitor for signs of withdrawn Counseling on alcohol cessation DVT px on SCDs due to GI bleed Code status Full code Subjective Pt was seen and examined Lying in bed with no distress Pt said that he feels fine He said that he feels tired Denies any chest pain, palpitation, dizziness and SOB Physical Exam Physical Exam: General- No acute distress Head- atraumatic Eyes- PERRL, EOMI, ENT- oropharynx clear Neck- supple, no JVD Lungs- clear to auscultation Heart- regular rhythm; no murmur Abdomen- normal bowel sounds, soft, nontender Extremities- no calf tenderness Neuro- alert, oriented x 3; PERRL, EOMI; no facial palsy; no dysarthria Skin- warm & dry Results & Data Vital Signs (Past 12 Hours) Vital Signs Temp Pulse Pulse Resp BP BP Pulse Ox 05/16/19 16:02 36.6 C 70 18 105/69 100 05/16/19 16:00 70 05/16/19 10:29 36.5 C 67 122/64 98 05/16/19 09:24 36.8 C 74 18 125/66 99 05/16/19 08:55 36.7 C 72 18 137/55 L 98 05/16/19 08:25 36.7 C 68 18 114/65 98 05/16/19 08:10 37.0 C 76 18 106/63 96 05/16/19 07:53 37.1 C 149 H 18 114/53 L 05/16/19 07:23 77 05/16/19 07:20 36.3 C L 65 20 121/66 99
[2019-05-16 16:29] LABS: Hematocrit (blood only) 22.4 % (42-52); Hemoglobin 7.5 g/dL (14.0-18.0)
[2019-05-16 22:09] LABS: Hematocrit (blood only) 24.7 % (42-52); Hemoglobin 8.4 g/dL (14.0-18.0)
[2019-05-17] MEDS: PANTOprazole 40 MG in DEXTROSE 5% 100 ML IV SCH ×5 (01:48→20:49)
[2019-05-17] MEDS: LEVOTHYROXINE SODIUM 25 MCG TABLET PO SCH (05:18)
[2019-05-17] MEDS: GABAPENTIN 600 MG TAB PO SCH ×2 (05:18→13:52)
[2019-05-17] MEDS: LACTATED RINGER'S 1,000 ML IV SCH (05:24)
[2019-05-17 08:14] LABS: Hematocrit (blood only) 24.9 % (42-52); Hemoglobin 8.3 g/dL (14.0-18.0); Mean Corpuscular Hemoglobin 31.4 pg (25-34); Mean Corpuscular Hgb Conc 33.3 g/dL (32-36); Mean Corpuscular Volume 94.3 fL (80-100); Mean Platelet Volume 8.9 fL (7.4-10.4); Platelet Count 137 K/uL (130-400); RDW Coefficient of Variation 14.3 % (11.5-14.5); RDW Standard Deviation 49.2 fL (36.4-46.3); Red Blood Count 2.64 M/uL (4.7-6.1); White Blood Count 5.14 K/uL (4.8-10.8)
[2019-05-17] MEDS: FOLIC ACID 1 MG TAB PO SCH (08:26)
[2019-05-17] MEDS: THIAMINE HCL 100 MG TAB PO SCH (08:26)
[2019-05-17] MEDS: MULTIVITAMIN TAB PO SCH (08:26)
[2019-05-17 08:38] LABS: BUN Creatinine Ratio 11.4 (10-20); Est GFR (African American) 63.4; Est GFR (Non-African American) 54.7
--- NOTE | 2019-05-17 09:50 | Gastroenterology Progress Note ---
Date of Service May 17, 2019 Supervising Physician Co-Signing Physician Notes 59 yo male admitted two days ago after having a presyncopal event at a bar in the setting of an acute intoxication. Reports of loose dark stools on admission - none since in house. Slight anemia and bun rise on admission. Has been on an IV PPI. given no overt gi bleeding, suspect this is alcohol gastritis. would still obtain imaging - abd [facility] with doppler to assess for cirrhosis/patency of pv/hv. Continue IV PPI- transition to oral when ready. Likely can have egd/colon as an outpatient given current clinical status. Strict alcohol cessation. Subjective No reports of hematemesis or dark stools overnite Reports none since yesterday Feeling better today Review of Systems Review of Systems: All systems reviewed & are unremarkable except as noted in HPI & below Physical Exam Physical Exam: Slightly less pale male in nad, appears more well rested today Eyes: PERRL, conjunctivae normal, anicteric sclerae Cardiovascular: RRR, no murmur, no edema Gastrointestinal (Abdomen): normal bowel sounds, soft, nontender, no hepatosplenomegaly Skin: no rashes, warm and dry Neurologic: PERRL, EOMI, accommodation nl, no face palsy, no dysarthria Results & Data Vital Signs (Past 12 Hours) Vital Signs Temp Pulse Pulse Resp BP Pulse Ox 05/17/19 07:30 72 05/17/19 07:18 36.8 C 73 18 127/74 96 05/17/19 03:45 36.7 C 67 18 104/62 100 05/17/19 00:14 37.0 C 66 18 120/67 98 05/17/19 00:00 63 Hgb has risen 1 gram with blood transfusion Bun has normalized
--- NOTE | 2019-05-17 12:51 | Hospitalist Progress Note ---
Date of Service May 17, 2019 Assessment & Plan (1) Acute GI bleeding: Present on admission with near syncopal episode Possible related to peptic ulcer dx, gastritis from alcohol/NSAIDs CT abd without contrast showed Hyperdense fluid in the rectum and sigmoid colon suggests the presence of intraluminal hemorrhage Rectal exam done with negative Hemoccult as per GI Hemoglobin dropped to 7.1 Received 2 unit PRBC during hospital course Hgb today 8.4 GI on board No EGD for now, but if clinical worsening or h/h continue to drop, will be done over the weekend If h/h stable, will plan for scope outpatient Continue IV PPI Starting on clear liquid diet and advanced as tolerated Monitor H/H Near Syncope No focal neuro deficit Fall precaution Stable Anemia Mostly related to GI bleed Hemoglobin on admission 10.8, then dropped to 7.1 Received 2 unit PRBC Repeat Hgb 8.4 today Monitor H/H and transfuse if needed JUDIE Creatinine on admission 1.47 Received IVF C Creatinine 1.3 today Stable Alcohol Abuse Denies any hx of alcohol withdrawn or DT Continue gabapentin/Ativan alcohol withdrawn protocol Monitor for signs of withdrawn Counseling on alcohol cessation DVT px on SCDs due to GI bleed Code status Full code Disposition Will discharge once medically stable Subjective Pt was seen and examined Lying in bed with no distress Pt said that he feels fine He said that he is hungry Denies any chest pain, palpitation, dizziness and SOB Physical Exam Physical Exam: General- No acute distress Head- atraumatic Eyes- PERRL, EOMI, ENT- oropharynx clear Neck- supple, no JVD Lungs- clear to auscultation Heart- regular rhythm; no murmur Abdomen- normal bowel sounds, soft, nontender Extremities- no calf tenderness Neuro- alert, oriented x 3; PERRL, EOMI; no facial palsy; no dysarthria Skin- warm & dry Results & Data Vital Signs (Past 12 Hours) Vital Signs Temp Pulse Pulse Resp BP Pulse Ox 05/17/19 11:37 36.7 C 60 20 122/67 98 05/17/19 07:30 72 05/17/19 07:18 36.8 C 73 18 127/74 96 05/17/19 03:45 36.7 C 67 18 104/62 100
[2019-05-17 18:27] LABS: Hemoglobin 8.2 g/dL (14.0-18.0)
[2019-05-18] MEDS: LACTATED RINGER'S 1,000 ML IV SCH (01:14)
[2019-05-18] MEDS: PANTOprazole 40 MG in DEXTROSE 5% 100 ML IV SCH ×5 (01:59→22:13)
[2019-05-18] MEDS: GABAPENTIN 600 MG TAB PO SCH ×2 (02:00→13:50)
[2019-05-18] MEDS: LEVOTHYROXINE SODIUM 25 MCG TABLET PO SCH (06:10)
[2019-05-18] MEDS: ACETAMINOPHEN 325 MG TAB PO PRN (06:11)
[2019-05-18] MEDS: THIAMINE HCL 100 MG TAB PO SCH (07:51)
[2019-05-18] MEDS: MULTIVITAMIN TAB PO SCH (07:52)
[2019-05-18] MEDS: FOLIC ACID 1 MG TAB PO SCH (07:52)
[2019-05-18 08:14] LABS: Hematocrit (blood only) 22.6 % (42-52); Mean Corpuscular Hemoglobin 33.1 pg (25-34); Mean Corpuscular Hgb Conc 35.4 g/dL (32-36); Mean Corpuscular Volume 93.4 fL (80-100); Mean Platelet Volume 8.5 fL (7.4-10.4); Platelet Count 140 K/uL (130-400); RDW Coefficient of Variation 13.8 % (11.5-14.5); RDW Standard Deviation 47.4 fL (36.4-46.3); Red Blood Count 2.42 M/uL (4.7-6.1); White Blood Count 5.27 K/uL (4.8-10.8)
--- NOTE | 2019-05-18 09:30 | Gastroenterology Progress Note ---
Date of Service May 18, 2019 Supervising Physician Co-Signing Physician Notes 59 yo male with a presyncopal episode at the bar while drinking, admitted for reports of dark stools. None since admission, guiac negative by myself on admission. Now with formed bm's and no reports of further dark stools. Hgb initially low at 7- stabilized at 8 after transfusion. Bun has normalized. IV PPI - transition to po. Suspect he has alcoholic gastritis, esophagitis - no evidence of chronic liver disease. Alcohol abstinence. Will arrange outpatient egd/colon in 2-4 weeks - our office will contact him to schedule- he was advised to follow-up with these scopes and abstain from alcohol. Alcohol rehab if indicated. Would ensure he is on PPI BID (40 mg at least once daily or 20 mg po bid prior meals) upon discharge, alcohol abstinence until follow-up scopes. Subjective No acute complaints No further reports of dark stools since admission Review of Systems Review of Systems: All systems reviewed & are unremarkable except as noted in HPI & below Physical Exam Physical Exam: Well nourished male in nad Eyes: PERRL, conjunctivae normal, anicteric sclerae Gastrointestinal (Abdomen): normal bowel sounds, soft, nontender, no hepatosplenomegaly Neurologic: PERRL, EOMI, accommodation nl, no face palsy, no dysarthria Results & Data Vital Signs (Past 12 Hours) Vital Signs Temp Pulse Pulse Resp BP BP Pulse Ox 05/18/19 07:28 36.7 C 75 20 108/69 100 05/18/19 03:09 36.8 C 63 18 112/62 100 05/18/19 00:05 36.8 C 64 18 110/52 L 99 05/18/19 00:00 89 Labs reviewed- hgb stable essentially 5.27/hgb 8.0/Hct 22.6/Plr 140 Na 144/K 4.0/Cl 112/Co2 26/Bun 16/Cr 4.4
--- NOTE | 2019-05-18 15:16 | Hospitalist Progress Note ---
Date of Service May 18, 2019 Assessment & Plan (1) Acute GI bleeding: Present on admission with near syncopal episode Possible related to peptic ulcer dx, gastritis from alcohol/NSAIDs CT abd without contrast showed Hyperdense fluid in the rectum and sigmoid colon suggests the presence of intraluminal hemorrhage Rectal exam done with negative Hemoccult as per GI Received 2 unit PRBC during hospital course Hgb today 8 Just had a dark red BM with clots GI on board No EGD for now, but if clinical worsening or h/h continue to drop, will be done over the weekend If h/h stable, will plan for outpatient scope Continue IV PPI for now Check H/H later and transfuse if needed Near Syncope No focal neuro deficit Fall precaution Stable Anemia Mostly related to GI bleed Hemoglobin on admission 10.8, then dropped to 7.1 Received 2 unit PRBC Repeat Hgb 8 today Monitor H/H and transfuse if needed JUDIE Creatinine on admission 1.47 Received IVF C Creatinine 1.3 Stable Alcohol Abuse Denies any hx of alcohol withdrawn or DT Continue gabapentin/Ativan alcohol withdrawn protocol No signs of alcohol withdrawn Counseling on alcohol cessation DVT px on SCDs due to GI bleed Code status Full code Disposition Will discharge once medically stable Subjective Pt was seen and examined Lying in bed with no distress Pt said that he tolerated diet He had a dark red BM with blood clots few minutes ago He said that he feels fine Denies any chest pain, palpitation, dizziness and SOB Physical Exam Physical Exam: General- No acute distress Head- atraumatic Eyes- PERRL, EOMI, ENT- oropharynx clear Neck- supple, no JVD Lungs- clear to auscultation Heart- regular rhythm; no murmur Abdomen- normal bowel sounds, soft, nontender Extremities- no calf tenderness Neuro- alert, oriented x 3; PERRL, EOMI; no facial palsy; no dysarthria Skin- warm & dry Results & Data Vital Signs (Past 12 Hours) Vital Signs Temp Pulse Pulse Resp BP Pulse Ox 05/18/19 11:51 36.9 C 67 16 117/66 100 05/18/19 08:00 71 05/18/19 07:28 36.7 C 75 20 108/69 100
[2019-05-18 17:39] LABS: Hematocrit (blood only) 23.6 % (42-52)
[2019-05-19] MEDS: PANTOprazole 40 MG in DEXTROSE 5% 100 ML IV SCH ×3 (02:47→12:26)
[2019-05-19] MEDS: ACETAMINOPHEN 325 MG TAB PO PRN ×2 (02:48→13:33)
[2019-05-19] MEDS: OXYCODONE HCL IR 5 MG TAB (IMMEDIATE RELEASE) PO PRN (03:37)
[2019-05-19] MEDS: LEVOTHYROXINE SODIUM 25 MCG TABLET PO SCH (05:41)
[2019-05-19] MEDS: FOLIC ACID 1 MG TAB PO SCH (07:39)
[2019-05-19] MEDS: MULTIVITAMIN TAB PO SCH (07:39)
[2019-05-19] MEDS: THIAMINE HCL 100 MG TAB PO SCH (07:39)
[2019-05-19 07:46] LABS: Hematocrit (blood only) 20.8 % (42-52); Hemoglobin 7.1 g/dL (14.0-18.0); Mean Corpuscular Hemoglobin 31.8 pg (25-34); Mean Corpuscular Hgb Conc 34.1 g/dL (32-36); Mean Corpuscular Volume 93.3 fL (80-100); Mean Platelet Volume 8.8 fL (7.4-10.4); Platelet Count 151 K/uL (130-400); RDW Coefficient of Variation 13.9 % (11.5-14.5); RDW Standard Deviation 47.4 fL (36.4-46.3); Red Blood Count 2.23 M/uL (4.7-6.1); White Blood Count 5.81 K/uL (4.8-10.8)
[2019-05-19] MEDS ORDERED: SODIUM CHLORIDE 0.9% 250 ML IV PRN (08:32)
--- NOTE | 2019-05-19 09:45 | Gastroenterology Progress Note ---
Date of Service May 19, 2019 Assessment & Plan (1) Syncope: 59 year old male admitted w/ symptomatic anemia following syncopal event at bar with friends w/ report of painless rectal bleeding since Saturday - last episode was yesterday when it was noted he had a large stool w/ BRB and clots. No BUN elevation, no melena. - Trend HGB - Transfuse PRN per primary service - Monitor and document all GI output - ETOH withdrawal protocol - OK for PO PPI - Clear liquid diet today - Start bowel prep w/ golytely - NPO after midnight for EGD/Colon 05/20/19 pending HGB > 8 Thank you for allowing us to participate in the care of this patient. Please call with any acute changes, questions or concerns. Please see addendum below with additional recommendation from my supervising physician. Present on Admission?: Yes (2) Acute GI bleeding: Present on Admission?: Yes Supervising Physician Co-Signing Physician Notes Attending attestation I have seen, examined this patient, and agree with the findings and above by our mid-level provider BILLY Escobedo, with the following additions -Patient admitted with what appears to be a lower GI bleed, he is hemodynamically stable, discussed with patient we will plan for prep today as well as EGD tomorrow and plan for EGD: Tomorrow. Vital signs are stable right now with a blood pressure in the one teens and a pulse less than 100. If has hemodynamic change then please page GI centralized traffic control operator otherwise we will plan for EGD colonoscopy. Subjective GI asked to re-evaluate given drop in HGB Pt was seen and evaluated, chart reviewed. Notes painless rectal bleeding started Saturday However when asked if he had issues to this prior he initially suggests years. Last BM yesterday Large w/ BRB and clots No BM today but feels like he has to move his bowels No black stools No vomiting specifically no coffee ground emesis or hematemesis No weight loss No family history of IBD. No family history of colon CA. Has never had EGD/Colon before. Review of Systems Constitutional: + fatigue; no fever and no chills Respiratory: + dyspnea; no cough Cardiovascular: no chest pain and no radiating jaw, neck or arm pain Gastrointestinal: + blood in stools (last episode yesterday); no abdominal pain, no coffee ground emesis, no hematemesis and no melena Physical Exam Constitutional: WD/WN, vitals as above Neck: trachea midline Respiratory: normal respiratory effort; no respiratory distress Cardiovascular: Rate/Rhythm: regular rate and regular rhythm Gastrointestinal (Abdomen): normal bowel sounds, soft, nontender, no hepatosplenomegaly Skin: no rashes, warm and dry Results & Data Vital Signs (Past 12 Hours) Vital Signs Temp Pulse Pulse Resp BP BP Pulse Ox 05/19/19 08:00 89 05/19/19 07:13 37.2 C 88 20 106/61 95 05/19/19 03:41 38.5 C H 88 20 94/44 L 100 05/19/19 03:30 37.6 C H 91 H 18 127/70 05/19/19 00:00 79 05/18/19 23:02 37.4 C 05/18/19 22:57 38.0 C H 85 18 128/78 99 Laboratory Results 05/19/19 05/19/19 05/18/19 Range/Units 08:40 06:50 17:29 WBC 5.81 (4.8-10.8) K/uL RBC 2.23 L (4.7-6.1) M/uL Hgb 7.1 L 8.0 L (14.0-18.0) g/dL Hct 20.8 L* 23.6 L (42-52) % MCV 93.3 (80-100) fL MCH 31.8 (25-34) pg MCHC 34.1 (32-36) g/dL RDW Std Deviation 47.4 H (36.4-46.3) fL RDW Coeff of Karan 13.9 (11.5-14.5) % Plt Count 151 (130-400) K/uL MPV 8.8 (7.4-10.4) fL POC Glucose (70-99) Blood Type O Positive Antibody Screen NEGATIVE Crossmatch See Detail 05/18/19 Range/Units 11:42 WBC (4.8-10.8) K/uL RBC (4.7-6.1) M/uL Hgb (14.0-18.0) g/dL Hct (42-52) % MCV (80-100) fL MCH (25-34) pg MCHC (32-36) g/dL RDW Std Deviation (36.4-46.3) fL RDW Coeff of Karan (11.5-14.5) % Plt Count (130-400) K/uL MPV (7.4-10.4) fL POC Glucose 77 (70-99) Blood Type Antibody Screen Crossmatch
[2019-05-19] MEDS ORDERED: GABAPENTIN 600 MG TAB PO SCH (14:00)
[2019-05-19] MEDS ORDERED: LAVAGE SOLUTION 4000ML PO SCH (14:00)
--- NOTE | 2019-05-19 14:55 | Hospitalist Progress Note ---
Date of Service May 19, 2019 Assessment & Plan (1) Acute GI bleeding: Present on admission with near syncopal episode Possible related to peptic ulcer dx, gastritis from alcohol/NSAIDs CT abd without contrast showed Hyperdense fluid in the rectum and sigmoid colon suggests the presence of intraluminal hemorrhage Rectal exam done with negative Hemoccult as per GI Received 3 unit PRBC during hospital course so far (included the 1 unit given today) Hgb today dropped 7.1 Will transfused 1 unit PRBC thoday Called GI this morning to re-eval patient GI plan for EGD/colonoscopy in am, Will make NPO after midnight Continue clear liquid diet IV PPI changed to oral Check H/H later and transfuse if needed Near Syncope No focal neuro deficit Fall precaution Stable Anemia Mostly related to GI bleed Hemoglobin on admission 10.8, then dropped to 7.1 Hgb 7.1 this morning, will transfuse 1 unit PRBC (Total transfusion 3 units during hospital course so far) Monitor H/H and transfuse if needed JUDIE Creatinine on admission 1.47 Received IVF Creatinine 1.3 Stable Alcohol Abuse Denies any hx of alcohol withdrawn or DT Continue gabapentin/Ativan alcohol withdrawn protocol No signs of alcohol withdrawn Counseling on alcohol cessation Arthritis Complaints of joint pain NSAID due to GI bleed Continue Tylenol Will add Lidoderm patch DVT px on SCDs due to GI bleed Code status Full code Disposition Will discharge once medically stable Subjective Pt was seen and examined Lying in bed with no distress last bowel movement was yesterday that was bloody He said that he feels fine I called GI this morning to re-eval him since hgb dropped to 7.1 Denies any chest pain, palpitation, dizziness and SOB Physical Exam Physical Exam: General- No acute distress Head- atraumatic Eyes- PERRL, EOMI, ENT- oropharynx clear Neck- supple, no JVD Lungs- clear to auscultation Heart- regular rhythm; no murmur Abdomen- normal bowel sounds, soft, nontender Extremities- no calf tenderness Neuro- alert, oriented x 3; PERRL, EOMI; no facial palsy; no dysarthria Skin- warm & dry Results & Data Vital Signs (Past 12 Hours) Vital Signs Temp Pulse Pulse Resp BP BP BP 05/19/19 13:41 37.3 C 98 H 18 127/72 05/19/19 12:50 39 C H 93 H 18 122/67 05/19/19 11:50 37.2 C 99 H 18 113/67 05/19/19 11:20 37.2 C 98 H 18 188/66 H 05/19/19 10:50 37.6 C H 93 H 18 117/64 05/19/19 10:35 37.7 C H 95 H 18 120/68 05/19/19 10:16 37.7 C H 95 H 18 120/68 05/19/19 08:00 89 05/19/19 07:13 37.2 C 88 20 106/61 05/19/19 03:41 38.5 C H 88 20 94/44 L 05/19/19 03:30 37.6 C H 91 H 18 127/70 Pulse Ox 05/19/19 13:41 98 05/19/19 12:50 98 05/19/19 11:50 99 05/19/19 11:20 96 05/19/19 10:50 95 05/19/19 10:35 98 05/19/19 10:16 98 05/19/19 08:00 05/19/19 07:13 95 05/19/19 03:41 100 05/19/19 03:30
[2019-05-19] MEDS: LIDOCAINE 5% 1 PATCH TD SCH (16:06)
[2019-05-19 19:32] LABS: Hematocrit (blood only) 24.2 % (42-52); Hemoglobin 8.2 g/dL (14.0-18.0)
[2019-05-19] MEDS: PANTOprazole 40 MG TAB PO SCH (20:49)
[2019-05-20] MEDS: ACETAMINOPHEN 325 MG TAB PO PRN ×4 (02:06→15:31)
[2019-05-20] MEDS: OXYCODONE HCL IR 5 MG TAB (IMMEDIATE RELEASE) PO PRN ×2 (02:06→05:56)
[2019-05-20] MEDS ORDERED: MoRPHine SULFATE 2 MG/ML CARP IV PRN (04:32)
[2019-05-20] MEDS ORDERED: MoRPHine SULFATE 2 MG/ML CARP ONE (04:45)
[2019-05-20] MEDS: LEVOTHYROXINE SODIUM 25 MCG TABLET PO SCH (05:51)
[2019-05-20 07:48] LABS: Hematocrit (blood only) 23.7 % (42-52); Hemoglobin 8.1 g/dL (14.0-18.0); Mean Corpuscular Hemoglobin 31.6 pg (25-34); Mean Corpuscular Hgb Conc 34.2 g/dL (32-36); Mean Corpuscular Volume 92.6 fL (80-100); Mean Platelet Volume 8.6 fL (7.4-10.4); Platelet Count 157 K/uL (130-400); RDW Coefficient of Variation 14.3 % (11.5-14.5); RDW Standard Deviation 49.5 fL (36.4-46.3); Red Blood Count 2.56 M/uL (4.7-6.1); White Blood Count 7.93 K/uL (4.8-10.8)
--- NOTE | 2019-05-20 08:11 | Gastroenterology Progress Note ---
Date of Service May 20, 2019 Assessment & Plan (1) Syncope: 59 year old male admitted w/ symptomatic anemia following syncopal event at bar with friends w/ report of painless rectal bleeding since Saturday - last episode was yesterday when it was noted he had a large stool w/ BRB and clots. No BUN elevation, no melena. Completed bowel prep w/ reported black/bloody stools - NPO for EGD/Colon this AM pending AM labs - Please see prior notes and procedure reports once completed for additional recommendations Thank you for allowing us to participate in the care of this patient. Please call with any acute changes, questions or concerns. Please see addendum below with additional recommendation from my supervising physician. (2) Acute GI bleeding: Supervising Physician Co-Signing Physician Notes Attending attestation I have seen, examined this patient, and agree with the findings and above by our mid-level provider BILLY Escobedo, with the following additions -No bleeding prior to prep, feels well and only complaint this morn is painful left elbo -Plan for EGD/Colon today -Further recs to follow Subjective Pt was seen and evaluated, chart reviewed. Completed 100% bowel prep. Notes black and bloody stools with prep Liquid stools No abd pain, nausea, vomiting Does have some left arm pain, acute on chronic Review of Systems Constitutional: no fever, no chills and no fatigue Respiratory: no cough and no dyspnea Cardiovascular: no chest pain and no dyspnea on exertion Gastrointestinal: + blood in stools and + melena Physical Exam Constitutional: WD/WN, vitals as above Respiratory: normal respiratory effort Cardiovascular: Rate/Rhythm: regular rate and regular rhythm Gastrointestinal (Abdomen): Inspection/Auscultation: abdomen normal to inspection Percussion/Palpation: abdomen soft Results & Data Vital Signs (Past 12 Hours) Vital Signs Temp Pulse Pulse Resp BP Pulse Ox 05/20/19 07:15 37.1 C 91 H 18 99/60 L 95 05/20/19 04:23 36.9 C 75 18 115/64 99 05/20/19 00:00 37.3 C 80 79 20 117/67 98
[2019-05-20 08:18] LABS: BUN Creatinine Ratio 7.3 (10-20); Calcium 7.8 mg/dl (8.5-10.1); Creatinine Clr Calc Pharmacy 53.3 ml/min; Est GFR (African American) 66.9; Est GFR (Non-African American) 57.7; Potassium 3.4 mmol/L (3.5-5.1)
--- NOTE | 2019-05-20 08:22 | Anesthesiology Consultation ---
Date of Service May 20, 2019 Assessment & Plan (1) Encounter for pre-operative examination: Chart Review Chart Review: Acceptable Risk for Surgery and Patient NOT seen in Pre Admission Testing Consults Requested none History Surgery Operation Date: 05/20/19 08:30 Proposed Procedures p Colonoscopy EGD Dr Nitesh Dowling Height/Weight Height: 5 ft 6 in Weight: 64.6 kg Allergies Allergy/AdvReac Type Severity Reaction Status Date / Time codeine AdvReac Unknown Unverified 05/15/19 20:42 Medications Home Medications Medication Instructions Recorded Confirmed Last Taken ibuprofen 200 mg PO Q6H PRN 05/15/19 05/15/19 05/15/19 09:00 400mg sulindac 200 mg PO BID 05/15/19 05/15/19 05/15/19 Active Medications Generic Name Dose Route Start Last Admin Trade Name Freq PRN Reason Stop Dose Admin Acetaminophen 650 mg 05/16/19 04:09 05/20/19 05:56 Tylenol PO 06/15/19 04:08 650 mg Q4H PRN Administration Pain or Fever Folic Acid 1 mg 05/16/19 09:00 05/19/19 07:39 Folvite PO 06/15/19 08:59 1 mg QAM JANAK Administration Levothyroxine Sodium 25 mcg 05/16/19 06:30 05/20/19 05:51 Synthroid PO 06/15/19 06:29 25 mcg DAILYBB JANAK Administration Lidocaine 1 patch 05/19/19 15:15 05/19/19 16:06 Lidoderm 5% TD 06/18/19 15:14 1 patch QAM JANAK Administration Miscellaneous 1 ea 05/19/19 23:00 05/19/19 22:48 Remove Lidoderm Patch N/A 06/18/19 22:59 1 ea DAILY@2100 JANAK Administration Multivitamins 1 tab 05/16/19 09:00 05/19/19 07:39 Multivitamin Tab PO 06/15/19 08:59 1 tab QAM JANAK Administration Oxycodone HCl 5 mg 05/16/19 04:09 05/20/19 05:56 Roxicodone Immediate Rel PO 05/30/19 04:08 5 mg Q4H PRN Administration Pain Pantoprazole Sodium 40 mg 05/19/19 21:00 05/19/19 20:49 Protonix PO 06/18/19 20:59 40 mg BID JANAK Administration Thiamine HCl 100 mg 05/16/19 09:00 05/19/19 07:39 Vitamin B-1 PO 06/15/19 08:59 100 mg QAM JANAK Administration Past Medical History Medical History Acute GI bleeding (Acute) Syncope (Acute) Acute kidney injury Anemia Arthritis Hypothyroidism Rheumatoid arteritis Exercise / Class Metabolic Activity II 4-5 Yardwork/Stairs/Walk up hill Past Surgical History Surgical History History of dental surgery Past Anesthesia History No Hx of Anesthesia Complications and No Family Hx of Anesthesia Complications History of PONV No Hx of PONV and No Hx of Motion Sickness Social History Smoking Status: Never smoker tobacco type: smokeless tobacco Do You Dip or Chew Tobacco: Yes Smoking End Date: 2 cans/week Hx Alcohol Use: Yes Alcohol type: beer alcohol intake frequency: 3 or more drinks per day Alcohol Intake Frequency Comment: 4-6/night Hx Substance Use: No Physical Exam Vital Signs Last Vital Signs Temp 37.1 C 05/20/19 07:15 Pulse 91 H 05/20/19 07:15 Resp 18 05/20/19 07:15 BP 99/60 L 05/20/19 07:15 Pulse Ox 95 05/20/19 07:15 Testing Laboratory Results 05/20/19 07:33 05/20/19 07:33 PT 10.1 Seconds (9.0-12.0) 05/15/19 19:36 INR 1.0 (0.9-1.1) 05/15/19 19:36 Hemoglobin A1c 5.3 % (4.5-5.6) 05/16/19 04:37 Blood Type O Positive 05/19/19 08:40 Antibody Screen NEGATIVE 05/19/19 08:40 patient has received 3 units pRBC's this admission (admitted 05/15/2019). Electrocardiogram Date: 05/15/19 Findings: + NSR @ (04) NSR. LAD.
[2019-05-20] MEDS ORDERED: LIDOCAINE HCL 2% 2 ML VIAL/AMP(20MG/ML) INFIL ONE (09:24)
[2019-05-20] MEDS ORDERED: PROPOFOL IV EMULSION 10 MG/ML 20 ML VIAL IV ONE (09:24)
[2019-05-20] MEDS ORDERED: PHENYLEPHRINE 100MCG/ML 5ML SYR ONE (09:24)
--- NOTE | 2019-05-20 09:26 | GI REPORT ---
Patient Name: Sammy Diaz Procedure Date: 05/20/2019 8:52 AM Date of : 1960 Admit Type: Inpatient Age: 59 Gender: Male Attending MD: Bar Dowling MD Procedure: Upper GI endoscopy Providers: Bar Dowling MD Referring MD: Avel Bains Indications: Hematochezia Medicines: Monitored Anesthesia Care Complications: No immediate complications. Estimated blood loss: None. Estimated Blood Loss: Estimated blood loss: none. Procedure: Pre-Anesthesia Assessment: - Pre-Anesthesia Assessment: - Prior to the procedure, a History and Physical was performed, and patient medications, allergies and sensitivities were reviewed. The patient's tolerance of previous anesthesia was reviewed. Please see [employer] for complete details. - The risks and benefits of the procedure and the sedation options and risks were discussed with the patient. All questions were answered and informed consent was obtained. - Patient identification and proposed procedure were verified prior to the procedure by the physician and the nurse. The procedure was verified in the pre-procedure area in the procedure room. After obtaining informed consent, the endoscope was passed carefully and meticuously under direct vision and only advanced when the lumen was clearly identified, C02 insuflation was utilized throughout the entirity of the procedure. Throughout the procedure, the patient's blood pressure, pulse, and oxygen saturations were monitored continuously. After obtaining informed consent, the endoscope was passed under direct vision. Throughout the procedure, the patient's blood pressure, pulse, and oxygen saturations were monitored continuously. The Endoscope was introduced through the mouth, and advanced to the second part of duodenum. The upper GI endoscopy was accomplished without difficulty. The patient tolerated the procedure well. Findings: The examined esophagus was normal. The entire examined stomach was normal. The examined duodenum was normal. No signs of bleeding or bleeding lesions Impression: - Normal esophagus. - Normal stomach. - Normal examined duodenum. - No specimens collected. Recommendation: - Return patient [facility] for possible discharge same day. - Colonoscopy today Bar Dowling MD 05/20/2019 9:26:07 AM This report has been signed electronically. Note Initiated On: 05/20/2019 8:52 AM Number of Addenda: 0 I attest to the content of the Intraoperative Record and orders documented therein, exceptions below {[id number]}
--- NOTE | 2019-05-20 09:29 | GI REPORT ---
Patient Name: Sammy Diaz Procedure Date: 05/20/2019 8:51 AM Date of : 1960 Admit Type: Inpatient Age: 59 Gender: Male Attending MD: Bar Dowling MD Procedure: Colonoscopy Providers: Bar Dowling MD Referring MD: Avel Bains Indications: Rectal bleeding Medicines: Monitored Anesthesia Care Complications: No immediate complications. Estimated blood loss: None. Estimated Blood Loss: Estimated blood loss: none. Procedure: Pre-Anesthesia Assessment: - Pre-Anesthesia Assessment: - Prior to the procedure, a History and Physical was performed, and patient medications, allergies and sensitivities were reviewed. The patient's tolerance of previous anesthesia was reviewed. Please see [employer] for complete details. - The risks and benefits of the procedure and the sedation options and risks were discussed with the patient. All questions were answered and informed consent was obtained. - Patient identification and proposed procedure were verified prior to the procedure by the physician and the nurse. The procedure was verified in the pre-procedure area in the procedure room. After obtaining informed consent, the endoscope was passed carefully and meticuously under direct vision and only advanced when the lumen was clearly identified, C02 insuflation was utilized throughout the entirity of the procedure. Throughout the procedure, the patient's blood pressure, pulse, and oxygen saturations were monitored continuously. After I obtained informed consent, the scope was passed under direct vision. Throughout the procedure, the patient's blood pressure, pulse, and oxygen saturations were monitored continuously. The scope was introduced through the anus and advanced to the terminal ileum, with identification of the appendiceal orifice and IC valve. The colonoscopy was performed without difficulty. The patient tolerated the procedure well. The quality of the bowel preparation was fair and not adequate to identify polyps 6 mm and larger in size. Findings: The terminal ileum appeared normal. No signs of bleeding Multiple small-mouthed diverticula were found in the sigmoid colon. External and internal hemorrhoids were found during retroflexion. Brown and Greenish stool noted in the colon, no signs of bleeding or blood in the colon. Impression: - Preparation of the colon was fair. - Preparation of the colon was inadequate. - The examined portion of the ileum was normal. - Diverticulosis in the sigmoid colon. - External and internal hemorrhoids. - No specimens collected. Recommendation: - Return patient to [facility] for possible discharge same day. - Follow clinical course, should have outpatient capsule endoscopy if any signs of repeat bleeding - Advance diet - Likely diverticular in nature given presentation and lack of bleeding stigmata - Recall GI if any questions or changes Bar Dowling MD 05/20/2019 9:28:57 AM This report has been signed electronically. Note Initiated On: 05/20/2019 8:51 AM Number of Addenda: 0 I attest to the content of the Intraoperative Record and orders documented therein, exceptions below {[id number]}
--- NOTE | 2019-05-20 10:01 | Hospitalist Progress Note ---
Date of Service May 20, 2019 Assessment & Plan (1) Acute GI bleeding: Acute GI bleeding (Acute) Presented with near syncope associated with GI bleeding. Both dark stools and fresh blood per rectum were reported. Received PPI. GI consulted. Hemoglobin at time of admission was 10.8 and fell as low as 7.5 by 05/16. Patient received 2 units of packed RBCs. Hemoglobin fell to 7.1 on 05/19 and patient received a third unit of packed RBCs. CT of abdomen 05/16 demonstrated hyperdense fluid in the rectum and sigmoid colon consistent with blood. EGD was negative. Colonoscopy demonstrated diverticulosis with no evidence of recent bleeding. [place] the patient most likely had a lower GI bleed secondary to diverticulosis. However, outpatient capsule endoscopy recommended for evaluation of small bowel. Hemoglobin today = 8.1. Follow. Anemia (Acute) Acute blood loss anemia secondary to GI bleed as discussed below. Follow H&H. Near syncope (Acute) Probably secondary to GI bleed with associated blood loss. No recurrence of symptoms. Alcohol use (Chronic) No signs of withdrawal. Continue alcohol withdrawal protocol. Rheumatoid arthritis (Chronic) History of rheumatoid arthritis and osteoarthritis, usually well controlled with sulindac. Sulindac had to be held at the time of admission due to GI bleed. Over past 24 hours has developed inflammation of multiple joints, especially left elbow. Case discussed with Rheumatology. Could have gout or other process. Doubt septic arthritis/bursitis with multiple joints affected. Patient is quite certain that he is having a flare of rheumatoid arthritis secondary to withholding sulindac, based on his previous experiences. Arthrocentesis was suggested, but he declined. EGD did not show any ulcers or gastritis. Lower GI bleeding has resolved. Should be okay to resume sulindac with caution. IV methylprednisolone x2 doses today for more rapid control of symptoms. Has had intermittent fever, probably secondary to flare of rheumatoid arthritis. Will need further evaluation if fever persists. Hypothyroidism Newly diagnosed. TSH 13.2. Free T4 0.77. TFT's need to be interpreted with caution in setting of acute illness. Started on levothyroxine 0.025 mg daily. Follow TFT's as outpatient. DVT prophylaxis No anticoagulants due to GI bleeding. SCDs. Ambulate. Disposition Anticipated discharge to home. Family Medicine follow-up with Dr. Sriram Danielson. Rheumatology follow-up with Dr. Mckeon. Subjective Recheck for multiple problems. Patient seen in GI suite around 0940. Underwent EGD and colonoscopy without incident. Findings as discussed below. No further gross GI bleeding. Having severe joint pain and swelling- left elbow worse, but wrists and knees also involved. Had similar flare of RA in past when NSAID's were held. Febrile yesterday. Review of Systems: Constitutional- no fever. Cardiac- no chest pain. Pulmonary- no cough or SOB. GI- as noted above. - no urinary symptoms. Otherwise, as noted above. Physical Exam Physical Exam: Constitutional- afebrile, no acute distress Eyes- sclerae anicteric Respiratory- clear to auscultation, no respiratory distress Cardiovascular- cardiac rhythm regular, no murmurs or gallops appreciated, no JVD, no pretibial edema or calf tenderness Gastrointestinal- normal bowel sounds, soft, nondistended, nontender Musculoskeletal- swelling, erythema, warmth tenderness left elbow; lesser degree of synovitis right wrist and left knee Skin- warm and dry, no rash Psychiatric- alert, oriented Results & Data Vital Signs (Past 12 Hours) Vital Signs Temp Pulse Pulse Resp BP Pulse Ox 05/20/19 09:36 86 18 120/69 98 05/20/19 09:21 37.1 C 87 20 111/54 L 100 05/20/19 08:41 37.1 C 96 H 20 136/76 99 05/20/19 07:15 37.1 C 91 H 18 99/60 L 95 05/20/19 04:23 36.9 C 75 18 115/64 99 05/20/19 00:00 37.3 C 80 79 20 117/67 98 Laboratory Results 05/20/19 07:33 05/20/19 07:33
[2019-05-20] MEDS: MULTIVITAMIN TAB PO SCH (10:22)
[2019-05-20] MEDS: LIDOCAINE 5% 1 PATCH TD SCH (10:22)
[2019-05-20] MEDS: FOLIC ACID 1 MG TAB PO SCH (10:22)
[2019-05-20] MEDS: PANTOprazole 40 MG TAB PO SCH ×2 (10:23→20:47)
[2019-05-20] MEDS: THIAMINE HCL 100 MG TAB PO SCH (10:23)
--- NOTE | 2019-05-20 10:36 | Anesthesiology Progress Note ---
Date of Service May 20, 2019 Anesthesia Post Procedure Vital Signs Vital Signs: Temp Pulse Pulse Resp BP BP Pulse Ox 05/20/19 10:29 93 H 155/75 H 05/20/19 09:51 86 16 132/70 97 05/20/19 09:36 86 18 120/69 98 05/20/19 09:21 37.1 C 87 20 111/54 L 100 05/20/19 08:41 37.1 C 96 H 20 136/76 99 05/20/19 07:15 37.1 C 91 H 18 99/60 L 95 05/20/19 04:23 36.9 C 75 18 115/64 99 05/20/19 00:00 37.3 C 80 79 20 117/67 98 05/19/19 20:09 37.2 C 76 20 106/63 97 05/19/19 13:41 37.3 C 98 H 18 127/72 98 05/19/19 12:50 39 C H 93 H 18 122/67 98 05/19/19 11:50 37.2 C 99 H 18 113/67 99 05/19/19 11:20 37.2 C 98 H 18 188/66 H 96 05/19/19 10:50 37.6 C H 93 H 18 117/64 95 Transfer of Care Handoff Completed per policy Notes Mental Status: alert / awake / arousable and participated in evaluation Patient Amnestic to Procedure: Yes Nausea / Vomiting: adequately controlled Pain: adequately controlled Airway Patency, RR, SpO2: stable & adequate BP & HR: stable & adequate Hydration State: stable & adequate Anesthetic Complications: no major complications apparent and Pt Satisfied with anesthetic care
[2019-05-20] MEDS ORDERED: methylPREDNISolone 20 MG in SYRINGE 0 ML IV ONE (11:15)
[2019-05-20] MEDS: SULINDAC 200 MG TAB PO SCH (18:00)
[2019-05-20 23:05] VITALS: O2SAT 98
[2019-05-21 03:57] LABS: Appearance Urine Clear (Clear); Bacteria Urine Automated Negative (Negative); Bilirubin Urine Negative (Negative); Blood Urine Negative (Negative); Cast Urine Automated 0 /lpf (0-5); Color Urine Yellow; Epithelial Cell Urine Auto 0-5 /lpf (0-5); Glucose Urine UA 2+ (Negative); Ketones Urine Negative (Negative); Leukocyte Esterase Urine Negative (Negative); Nitrite Urine Negative (Negative); Protein Urine 1+ (Negative); RBC Urine Automated 0-4 /hpf (0-4); Specific Gravity Urine 1.016 (1.000-1.030); Urobilinogen Urine Negative (Negative); WBC Urine Automated 0 /hpf (0-5)
[2019-05-21] MEDS: LEVOTHYROXINE SODIUM 25 MCG TABLET PO SCH (05:52)
[2019-05-21 07:25] VITALS: BP 116/65; TEMP 98.1
[2019-05-21] MEDS: THIAMINE HCL 100 MG TAB PO SCH (08:14)
[2019-05-21] MEDS: PANTOprazole 40 MG TAB PO SCH (08:14)
[2019-05-21] MEDS: LIDOCAINE 5% 1 PATCH TD SCH (08:14)
[2019-05-21] MEDS: FOLIC ACID 1 MG TAB PO SCH (08:14)
[2019-05-21] MEDS: MULTIVITAMIN TAB PO SCH (08:14)
[2019-05-21] MEDS: SULINDAC 200 MG TAB PO SCH (08:14)
[2019-05-21 08:33] LABS: Hematocrit (blood only) 25.9 % (42-52); Hemoglobin 8.7 g/dL (14.0-18.0)
[2019-05-21 09:06] LABS: BUN Creatinine Ratio 9.1 (10-20); Calcium 8.7 mg/dl (8.5-10.1); Creatinine Clr Calc Pharmacy 50.8 ml/min; Est GFR (African American) 64.5; Est GFR (Non-African American) 55.7; Potassium 3.6 mmol/L (3.5-5.1)
--- NOTE | 2019-05-21 13:34 | Hospitalist Progress Note ---
Date of Service May 21, 2019 Assessment & Plan (1) Acute GI bleeding: Acute GI bleeding (Acute) Presented with near syncope associated with GI bleeding. Both dark stools and fresh blood per rectum were reported. Received PPI. GI consulted. Hemoglobin at time of admission was 10.8 and fell as low as 7.5 by 05/16. Patient received 2 units of packed RBCs. Hemoglobin fell to 7.1 on 05/19 and patient received a third unit of packed RBCs. CT of abdomen 05/16 demonstrated hyperdense fluid in the rectum and sigmoid colon consistent with blood. EGD was negative. Colonoscopy demonstrated diverticulosis with no evidence of recent bleeding. [place] the patient most likely had a lower GI bleed secondary to diverticulosis. However, outpatient capsule endoscopy recommended for evaluation of small bowel. Hemoglobin day of discharge = 8.7. Follow. Anemia (Acute) Hemoglobin at time of admission was 10.8. MCV was 97. Serum iron 113, TIBC 216, transferrin 179, ferritin 119, vitamin B12 272, folic acid 24. Acute blood loss anemia secondary to GI bleed as discussed above. Discharge hemoglobin 8.7. Discharge on ferrous sulfate 325 mg daily with ascorbic acid for better absorption. Follow H&H. Near syncope (Acute) Probably secondary to GI bleed with associated blood loss. No recurrence of symptoms. Alcohol use (Chronic) No signs of withdrawal. Rheumatoid arthritis (Chronic) History of rheumatoid arthritis and osteoarthritis, usually well controlled with sulindac. Sulindac had to be held at the time of admission due to GI bleed. Over past 24 hours has developed inflammation of multiple joints, especially left elbow. Case discussed with Rheumatology. Could have gout or other process. Doubt septic arthritis/bursitis with multiple joints affected. Patient is quite certain that he is having a flare of rheumatoid arthritis secondary to withholding sulindac, based on his previous experiences. Arthrocentesis was suggested, but he declined. EGD did not show any ulcers or gastritis. Lower GI bleeding has resolved. Should be okay to resume sulindac with caution. Add PPI for gastroprotection. Arthralgias and exam significantly improved after resumption of sulindac and 2 d oses of methylprednisolone. Hypothyroidism Newly diagnosed. TSH 13.2. Free T4 0.77. TFT's need to be interpreted with caution in setting of acute illness. Started on levothyroxine 0.025 mg daily. Follow TFT's as outpatient. DVT prophylaxis No anticoagulants due to GI bleeding. SCDs. Ambulate. Disposition Discharge to home. Family Medicine follow-up with Dr. Sriram Danielson. Rheumatology follow-up with Dr. Mckeon. Subjective Recheck for multiple problems. Patient seen in his room around 0930. Doing well. No further hematochezia. No abdominal pain, nausea, vomiting. Temp down. Arthralgias significantly improved. Review of Systems: Constitutional- no fever. Cardiac- no chest pain. Pulmonary- no cough or SOB. GI- as noted above. - no urinary symptoms. Otherwise, as noted above. Physical Exam Physical Exam: Constitutional- afebrile, no acute distress Eyes- sclerae anicteric Respiratory- clear to auscultation, no respiratory distress Cardiovascular- cardiac rhythm regular, no murmurs or gallops appreciated, no JVD, no pretibial edema or calf tenderness Gastrointestinal- normal bowel sounds, soft, nondistended, nontender Musculoskeletal- less swelling, erythema, warmth tenderness left elbow; no significant erythema or warmth wrists, hands, or knees Skin- warm and dry, no rash Psychiatric- alert, oriented Results & Data Vital Signs (Past 12 Hours) Vital Signs Temp Pulse Resp BP Pulse Ox 05/21/19 07:24 36.7 C 67 18 116/65 98 Laboratory Results 05/21/19 08:11 05/21/19 08:11
[2019-05-21 14:13] VITALS: PULSE 81
--- NOTE | 2019-05-22 06:34 | Discharge Summary ---
Date of Service Date of Admission: 05/16/19 Date of Discharge: 05/21/19 Admission HPI Per Admitting Provider History obtained from patient, family, and records. Medical history significant for rheumatoid arthritis, CRI (baseline creatinine 1.4). Yesterday patient noted loose dark stools admixed with red blood without abdominal pain, nausea, emesis symptoms. No previous episode in the past as per patient. No unusual weight loss. Usual daily NSAID intake. Patient was at a bar at [employer] yesterday afternoon when he felt lightheaded, felt like he was going to pass out. Patient caught by a friend before hitting the ground. At the ER, IV PPI started for UGI B. Principal Diagnosis gastrointestinal bleeding, probably diverticular OTHER NEW / ACUTE DIAGNOSES acute blood loss anemia flare inflammatory arthritis hypothyroidism Discharge Data Allergies Allergy/AdvReac Type Severity Reaction Status Date / Time codeine AdvReac Unknown Unverified 05/15/19 20:42 Consultations 05/16/19 00:04 ED Decision to Admit Stat 05/16/19 04:09 Consult Gastroenterology Routine Procedures Performed Operation Date: 05/20/19 08:30 Actual Procedures p Esophagogastroduodenoscopy - Bar Dowling s Colonoscopy - Bar Dowling Ordered Studies 05/15/19 23:22 CT abd pelvis wo con Urgent Hospital Course (1) Acute GI bleeding: Acute GI bleeding (Acute) Presented with near syncope associated with GI bleeding. Both dark stools and fresh blood per rectum were reported. Received PPI. GI consulted. Hemoglobin at time of admission was 10.8 and fell as low as 7.5 by 05/16. Patient received 2 units of packed RBCs. Hemoglobin fell to 7.1 on 05/19 and patient received a third unit of packed RBCs. CT of abdomen 05/16 demonstrated hyperdense fluid in the rectum and sigmoid colon consistent with blood. EGD was negative. Colonoscopy demonstrated diverticulosis with no evidence of recent bleeding. [place] the patient most likely had a lower GI bleed secondary to diverticulosis. However, outpatient capsule endoscopy recommended for evaluation of small bowel. Hemoglobin day of discharge = 8.7. Follow. Anemia (Acute) Hemoglobin at time of admission was 10.8. MCV was 97. Serum iron 113, TIBC 216, transferrin 179, ferritin 119, vitamin B12 272, folic acid 24. Acute blood loss anemia secondary to GI bleed as discussed above. Discharge hemoglobin 8.7. Discharge on ferrous sulfate 325 mg daily with ascorbic acid for better absorption. Follow H&H. Near syncope (Acute) Probably secondary to GI bleed with associated blood loss. No recurrence of symptoms. Alcohol use (Chronic) No signs of withdrawal. Rheumatoid arthritis (Chronic) History of rheumatoid arthritis and osteoarthritis, usually well controlled with sulindac. Sulindac had to be held at the time of admission due to GI bleed. Over past 24 hours has developed inflammation of multiple joints, especially left elbow. Case discussed with Rheumatology. Could have gout or other process. Doubt septic arthritis/bursitis with multiple joints affected. Patient is quite certain that he is having a flare of rheumatoid arthritis secondary to withholding sulindac, based on his previous experiences. Arthrocentesis was suggested, but he declined. EGD did not show any ulcers or gastritis. Lower GI bleeding has resolved. Should be okay to resume sulindac with caution. Add PPI for gastroprotection. Arthralgias and exam significantly improved after resumption of sulindac and 2 doses of methylprednisolone. Hypothyroidism Newly diagnosed. TSH 13.2. Free T4 0.77. TFT's need to be interpreted with caution in setting of acute illness. Started on levothyroxine 0.025 mg daily. Follow TFT's as outpatient. DVT prophylaxis No anticoagulants due to GI bleeding. SCDs. Ambulated. Disposition Discharged to home. Family Medicine follow-up with Dr. Sriram Danielson. Rheumatology follow-up with Dr. Mckeon. Total Time Total Time Spent Total Time Spent (In Minutes): 40 Discharge Plan Discharge Items Patient Disposition: Home - Self-Care Reason For Visit: rectal bleeding Discharge Diagnosis: rectal bleeding, probably due to diverticulosis Condition: Good Discharge Goals: Improve disease control Activity: As commented below Activity Comment: gradually increase activity as tolerated Non-emergency contact: Primary Care Provider and Hospitalist Call non-emergency contact if: you have any medication questions and your symptoms worsen Follow-up/Referrals: Sriram Danielson DO [Primary Care Provider] - (05/25/2019 1:20 PM Sriram Danielson DO ) Diet: Regular Addtl Provider Instructions: MEDICATION CHANGES: NEW MEDICATIONS omeprazole (Prilosec) 40 mg daily protects stomach from developing ulcers levothyroxine 25 micrograms take daily for underactive thyroid gland take on empty stomach at least 30 min before breakfast ferrous sulfate (iron pill) 325 mg take daily with ascorbic acid ascorbic acid (vitamin C) 500 mg take daily with ferrous sulfate SUMMARY OF TEST RESULTS: Red blood count was low from rectal bleeding. Thyroid hormone level was low. EGD (upper scope) did not show any ulcers or other problems. Colonoscopy showed diverticulosis. PENDING TEST RESULTS: none RECOMMENDATIONS FOR FOLLOW-UP: Outpatient testing with capsule endoscopy to examine small intestine. Recheck blood count in 1 week in clinic. OTHER INSTRUCTIONS: Avoid excessive consumption of alcoholic beverages. Seek medical attention if you have: * temperature above 101 * chest pain or trouble breathing * abdominal pain, nausea, vomiting * diarrhea, dark stools or bloody stools * any unanswered questions or concerns Call [phone] if symptoms are severe. Please take good care of yourself. Call if you have any questions or problems. You can reach a [facility] hospitalist on duty at 24 hours a day by calling [phone]. My cell # is [phone]. Prescriptions: New levothyroxine [Synthroid] 25 mcg Tablet 25 mcg PO DAILYBB Qty: 30 RF: 5 omeprazole 40 mg capsule,delayed release(DR/EC) 40 mg PO DAILY Qty: 30 RF: 5 ferrous sulfate 325 mg (65 mg iron) tablet 325 mg PO DAILY Qty: 30 RF: 1 ascorbic acid (vitamin C) 500 mg tablet 500 mg PO DAILY Qty: 30 RF: 1 Continued sulindac 200 mg tablet 200 mg PO BID RF: 0 Stand-Alone Forms: [facility] [place] Discharge Orders: Discharge Order (Routine); Ordered 05/21/19 Ordered By: Avel Bains Admission Data Admit Date/Time: 05/16/19 01:53 Attending Provider: Avel Bains Admit Provider: Nas Cortez Primary Care Provider: Sriram Danielson Other Providers: Estuardo Grsosman ; Nas Cortez ; Shanta Balderas Service: Telemetry Medical Other Interventions: Discharge Summary Assessment (RN) Last Done: 05/21/19 14:12 DC Date/Time DO NOT enter until pt leaves facility: 05/21/19 14:31
== END 2019-05-21 14:31 | disposition home or self-care (01) | DRG 378 ==
LOC: ED 19:28 → SUATTDRO 05-16 01:53 → 2N 05-16 01:53